=== PATIENT | female | born 1955 | race Caucasian/White ===

== ENCOUNTER → 2024-05-07 09:00 | Outpatient (REF) | payer OTHER, SELFPAY | LOC: RCS 09:00 | PROVIDERS: ATTENDING PHYSICIAN Internal Medicine; FAMILY PHYSICIAN Physician Assistant | DX: I48.21 Permanent atrial fibrillation (principal); I42.1 Obstructive hypertrophic cardiomyopathy; I34.0 Nonrheumatic mitral (valve) insufficiency; I21.4 Non-ST elevation (NSTEMI) myocardial infarction | CPT/HCPCS: 93306 ==

== ENCOUNTER 2024-09-04 14:09 | Inpatient (IN) | payer OTHER, SELFPAY ==
[2024-09-04] VITALS (10 sets, daily range): BP systolic 97–133; BP diastolic 46–77; BMI 22.0; BMI 21.4
--- NOTE | 2024-09-04 11:31 | ED.GENMED ---
History of Present Illness
General
Chief Complaint: Breathing Problem
Source: patient
Exam Limitations: none
Time Seen by Provider: 09/04/24 10:59
History of Present Illness
History of Present Illness:
Shortness of breath started 2 days ago. Progressive. History of CHF. No chest pain no fever cough congestion or hemoptysis. Symptoms are moderate in nature.
Past History
Past History
ED Past Medical History: Arrthythmia (Atrial flutter/fib, V. tach, V fib,), CAD, CHF, Hypercholesterolemia, [place], Psychiatric (major depression), Other (hiatal hernia), Other (pyelonephritis) and Other (Cardiomyopathy, heart heart valve problem,
Sudden cardiac )
ED Past Surgical History: Cardiac (Pacer/AICD), Cholecystectomy, Gynecological (tubal ligation), Orthopedic (R hip replacment) and Other (Cardiac ablation done in 2004 at 2005 at [facility], and a colonoscopy in 2006, abd hernia repair)
Social History
Tobacco: Smoker
Alcohol: None
Drug: None and Other
Personal: Partner
Living: alone
Employment: Not employed
Family History
Family History: Cancer (Mother ngozi duct, Brother colon)
Review of Systems
Review of Systems
All Other Systems: Not applicable
Constitutional: Denies fever or chills
Cardiac: Denies chest pain or syncope
Phy Exam
Physical Exam
Physical Exam:
GENERAL: Alert and oriented in no apparent distress
EYE: Orbits normal.
NECK: Supple, no significant adenopathy.
ENT: Pharynx without erythema
CARDIAC: Regular rate and rhythm without any obvious murmurs.
LUNGS: Mild tachypnea with expiratory wheezing in the bases
ABDOMEN: Soft, without focal tenderness or distention
NEUROLOGICAL: Alert and oriented , grossly non-focal
SKIN: Warm and dry, no rash or lesion, no discoloration, skin intact.
MUSCULOSKELETAL: No edema,no deformity.Good color
PSYCH: Normal and appropriate interaction.
Scores
Heart Failure Risk
Heart Failure Risk Score: Yes
History of Stroke or TIA: No
History of intubation for respiratory distress: No
Heart rate on ED arrival >/= 110: No
SaO2 <90% on arrival on room air: No
HR >/=110 during 3min walk test (or too ill to perform test): Yes
ECG has acute ischemic changes: No
Urea >/=12mmol/L (BUN 33.6mg/dL): No
Serum CO2>/=35mmol/L: No
Troponin I or T elevated to [place] Level (0.4mg/dL): No
NT-proBNP >/=5,000ng/L (5,000pg/ml): No
HF Risk Score: 2
Admission Status: MEDIUM RISK 9.2% Consider observation or discharge to home with homecare & f/u visit to PCP/[facility], or SNF for treatment
Course
Orders/Labs/Results
Orders:
Orders
09/04/24 10:53
Electrocardiogram (*1) Urgent
Reason for Study: Shortness of Breath
EKG- Treatment ONCE
09/04/24 11:05
IV Insert/Care/Rem.- Treatment PRN
CR Chest Portable - 1 View Urgent
Comment:
Reason For Exam: sob
Reason Study Needs to be Portable: Patient Unstable
09/04/24 11:20
Basic Metabolic Panel Urgent
COVID-19 Antigen Urgent
Source: Nasal Swab
Complete Blood Count/With Diff Urgent
Glycohemoglobin (HgbA1c) Urgent
NT-proBNP Urgent
Troponin I Urgent
Influenza A+B Rapid Molecular Urgent
[place] Source: Nasal Swab
Specimen Description:
09/04/24 13:06
Furosemide [Lasix] 80 mg IV NOW STA
Ipratropium/Albuterol Sulfate [Duoneb] 3 ml INH R NOW ONE
09/04/24 13:53
Admit/Transfer Patient As Directed
Co-Sign Provider:
Level of Care: Inpatient admission
Assign to:: Telemetry
Physician / Group: Marcel Marino
Diagnosis: Acute on Chronic HFpEF
Reason for Telemetry: Arrhythmia
Date to Stop Telemetry: 09/07/24
Time to Stop Telemetry: 11:00
Reason for Hospitalization: Acute on Chronic HFpEF
Expected length of stay greater than two midnights?: Yes
ELOS- Estimated Length of Stay in days: 3
I certify the patient meets the requirements for IP care: Yes
PRN Pain Medication Management As Directed
May give lesser potent ordered pain med per pt: Yes
preference::
Protocol:: Medication orders for pain may be administered in a
manner that supports deferring to patient preference
when the pt is:
- Requesting an ordered lesser potent pain medication.
Least to most potent pain medications are defined
as: acetaminophen < NSAID < tramadol < opioids
(morphine, oxycodone, hydromorphone).
- Requesting a lesser dose of the same medication IF
ORDERED.
- Requesting a less intrusive route of administration
if both routes are prescribed by the provider (PO <
IV).
09/04/24 13:54
Code Status As Directed
Resuscitation Status: Full Code
09/04/24 Dinner
Cholesterol Lowering
At Your Request: Full Participation
Cholesterol Lowering: Sodium, 2 Gram
09/04/24 18:44
Electrocardiogram (*1) Q6H
Reason for Study: Chest Pain
Comment: at admission and Q3H for total of 3, to be done with each troponin
Rosuvastatin Calcium [Crestor] 40 mg PO QPM
09/04/24 18:44
CARDIOLOGY CONSULT Routine
Consulting Provider: Ahsan Mcdermott)
Was physician already notified: Yes
Activity As Directed
Activity Level: Out of Bed-Early Mobility
Bladder Scan As Directed
Follow Bladder Retention/Intermittent Cath Algorithm?: Yes
PRN if no void in __ hours: 6
Frequency: Per Retention Algorithm
If Bladder Scan Result >: 400
then:: Straight cath
INT (Intravenous Needle Therapy) As Directed
Comment: maintain peripheral IV access
Intake/ Output As Directed
Frequency: Per unit guidelines
Straight Cath As Directed
Frequency: Per Retention Algorithm
Additional Instructions: straight cath as needed per acute urinary retention algorithm for 24 hrs
Additional Instructions: for bladder scan greater than 400 mL
Vital Signs As Directed
Frequency: q4h
Weight As Directed
Frequency: Daily
09/04/24 20:00
Metoprolol [Lopressor] 100 mg PO BID
09/04/24 21:07
PT/INR [Prothrombin Time] Routine
Troponin I Q6H
Comment: at admit & Q3H for 3 total including ED draws, obtain ECG with each level
09/04/24 22:00
Warfarin [Coumadin] 2 mg PO MOWETHFRSA
09/05/24 00:44
Electrocardiogram (*1) Q6H
Reason for Study: Chest Pain
Comment: at admission and Q3H for total of 3, to be done with each troponin
09/05/24 01:29
Troponin I Q6H
Comment: at admit & Q3H for 3 total including ED draws, obtain ECG with each level
09/05/24 06:00
Complete Blood Count/No Diff IN AM
Comprehensive Metabolic Panel IN AM
09/05/24 08:00
Citalopram [Celexa] 20 mg PO DAILY
Omeprazole Suspension [Prilosec Baby Oral Suspension] 20 mg PO DAILY
Ranolazine Extended Release [Ranexa Extended Release] 500 mg PO DAILY
Verapamil Extended Release [Calan Extended Release] 360 mg PO DAILY
09/06/24 06:00
Complete Blood Count/No Diff IN AM
Comprehensive Metabolic Panel IN AM
09/07/24 06:00
Complete Blood Count/No Diff IN AM
Comprehensive Metabolic Panel IN AM
09/07/24 11:00
DC Protocol for Telemetry ONCE
09/07/24 18:00
Warfarin [Coumadin] 4 mg PO SUTU
Abnormal Lab Results
09/04/24
11:20
RBC 4.02 L 10^6/uL
(4.20-5.40)
Hct 35.6 L %
(37.0-47.0)
Abs Immat Gran (auto) 0.1 H 10^3/uL
(0-0.05)
Absolute Neuts (auto) 7.3 H 10^3/uL
(1.4-6.5)
Absolute Monos (auto) 0.9 H 10^3/uL
(0.1-0.6)
Immature Gran % 0.6 H %
(0-0.5)
Neutrophils % 76.3 H %
(42.2-75.2)
Lymphocytes % 12.1 L %
(20.5-51.1)
BUN 23 H mg/dl
(7-17)
Glucose 173 H mg/dl
(70-99)
09/04/24 11:20
09/04/24 11:20
Vital Signs
Initial and Last Documented VS:
Initial Vital Signs
Temp Pulse Resp BP Pulse Ox
97.9 F 71 20 133/74 98
09/04/24 10:50 09/04/24 10:50 09/04/24 10:50 09/04/24 10:50 09/04/24 10:50
Last Documented Vital Signs
Temp Pulse Resp BP Pulse Ox
98.2 F 61 18 117/61 93
09/05/24 03:00 09/05/24 03:00 09/05/24 03:00 09/05/24 03:00 09/05/24 03:00
MDM/Problems Addressed
Differential Diagnosis Includes:
Progressive dyspnea. CHF versus COPD/respiratory versus both. Workup in progress
*Radiology
Radiology exam reviewed: preliminary read by ED provider (Mild CHF) and radiology read reviewed (Mild CHF)
*Pulse Oximetry
Patient hypoxic: no
*EKG
Interpreted by ED Provider?: Yes
Comparison EKG: changes noted
Heart Rate: 70
Rate: normal
Rhythm: sinus
Raymond: normal axis
Interval: first degree heart block
QRS Pattern: right bundle branch block (inc)
Ischemia: T-wave inversion
*Critical Care Note
Total Time (30-74mins, 75-104mins- exclusive of procedures): Not Applicable
Data Reviewed
Review of Other/Old Records Reveals: Labs, Records, Radiology Studies and Testing
Update Note
Update Note:
Patient with a component of CHF but also expect probably a component of COPD. Will admit. Mildly tachypneic at rest and describing significant tachypnea with exertion
ED Attending Note
-
Portions of this chart may have been created with voice recognition software.� Occasional wrong word or��sound alike� substitutions may have occurred due to the inherent limitations of voice recognition software.
Discharge Plan
Departure
Patient Disposition: Admit
Date of Disposition: 09/04/24
Time of Disposition: 13:08
Presentation/result/management discussed w/ accepting MD/DO: Hospitalist
Discharge Problem:
CHF/COPD
Interventions
Interventions:
*Risk Screen - Suicide Last Done: 09/04/24 10:51
*Neglect/Abuse Screening Last Done: 09/04/24 10:51
*ED COVID-19 Vaccine History Last Done: 09/04/24 18:17
*Nursing Disposition Last Done: 09/04/24 18:29
ED- Cardiac Assessment Last Done: 09/04/24 11:29
ED- Pulmonary Assessment Last Done: 09/04/24 11:29
Discharge Date and Time
Discharge Date/Time: 09/04/24 18:29
[2024-09-04 11:36] LABS: % Basophils 0.6 % (0-2); % Eosinophils 1.1 % (0-6); % Immature Granulocytes 0.6 % (0-0.5); % Lymphocytes 12.1 % (20.5-51.1); % Monocytes 9.3 % (1.7-9.3); % Neutrophils 76.3 % (42.2-75.2); Absolute Basophils 0.1 10^3/uL (0-0.2); Absolute Eosinophils 0.1 10^3/uL (0-0.7); Absolute Immature Granulocytes 0.1 10^3/uL (0-0.05); Absolute Lymphocytes 1.2 10^3/uL (1.2-3.4); Absolute Monocytes 0.9 10^3/uL (0.1-0.6); Absolute Neutrophils 7.3 10^3/uL (1.4-6.5); Hematocrit 35.6 % (37.0-47.0); Hemoglobin 12.2 g/dL (12.0-16.0); Mean Corp Hgb Conc. 34.3 g/dL (33.0-37.0); Mean Corpuscular Hgb 30.3 pg (27.0-31.0); Mean Corpuscular Volume 88.6 fL (81.0-99.0); Nucleated Red Blood Cells % 0 %; Platelet Count 255 10^3/uL (130-400); Red Blood Cell Count 4.02 10^6/uL (4.20-5.40); Red Cell Dist. Width 13.2 % (11.5-14.5); White Blood Cell Count 9.6 10^3/uL (4.8-10.8)
[2024-09-04 11:53] LABS: COVID-19 Antigen Negative (Negative)
[2024-09-04 11:57] LABS: Blood Urea Nitrogen 23 mg/dl (7-17); Calcium 9.5 mg/dl (8.4-10.2); Carbon Dioxide 26 mmol/L (22-30); Estimated Creatinine Clearance 52 ml/min; Glucose 173 mg/dl (70-99); eGFR > 60.00
[2024-09-04 12:14] LABS: NT-proBNP 3570 pg/ml; Troponin I 0.014 ng/ml
[2024-09-04 12:23] LABS: Chloride 103 mmol/L (98-107); Potassium 4.1 mmol/L (3.5-5.1); Sodium 140 mmol/L (135-145)
[2024-09-04] MEDS: LASIX 80 MG IV (13:08)
[2024-09-04] MEDS: DUONEB 3 ML INH (13:08)
--- NOTE | 2024-09-04 13:12 | HPS.HSE ---
Family Physician
-
Family Physician: Josep Storey
Chief Complaint
-
Breathing problem
History of Present Illness
Patient is a 69-year-old female with past medical history significant for HFpEF, ventricular tachycardia, atrial fibrillation, hypertrophic obstructive cardiomyopathy, and depression presented to [facility] ED for evaluation of HEATH and increased
dyspnea at rest. Patient stated that she has noticed being more short of breath with exertion over the past several days and than last night she noticed increased dyspnea when lying in bed that was associated with chest pain (describes as pressure
in the shoulder area) when it did not resolve or improve overnight she came in for evaluation. Patient denies fever, chills, cough, nausea, vomiting, constipation, or diarrhea.
Medical History
Past Medical History
Past Medical History: Reports Other
Additional Past Medical History:
HFpEF
Ventricular Tachycardia
Atrial Fibrillation
Hypertrophic obstructive cardiomyopathy
Depression
Past Surgical History: Reports Other
Additional Past Surgical History:
Cholecystectomy
Hernia repair
Defibrillator
Social History
Tobacco: Smoker (20 pack year history, currently smokes approximately 5 cigarettes a day)
Alcohol: None
Drug: Marijuana (smokes a few times a week)
Personal: Single
Living: With Family
Employment: Disabled
Family History
Family History: Other (Mother: Bile duct ca, A-fib; Father: Blood ca; Brother: Rectal ca; Daughter: rectal ca)
Allergies / Home Medications
Allergies reflects when Allergies were last updated in [facility].
Home Medications with original date entered in [facility]
Allergy/Medication List:
Allergies
Allergy/AdvReac Type Severity Reaction Status Date / Time
amiodarone Allergy Shortness Verified 09/04/24 10:52
of Breath
morphine Allergy Vomiting Verified 09/04/24 10:52
Home Medications
warfarin 4 mg tablet (Jantoven) 4 mg PO MOWETHFRSA Blood clot prevention/tx 05/06/11
citalopram 20 mg tablet 20 mg PO DAILY Mental health 07/13/15
metoprolol tartrate 100 mg tablet 100 mg PO BID Blood pressure 11/25/19
omeprazole 20 mg capsule,delayed release 20 mg PO DAILY Gastrointestinal issue 11/25/19
furosemide 40 mg tablet 80 mg PO DAILY Fluid retention/Swelling 09/06/20
verapamil 180 mg tablet,extended release 360 mg PO DAILY Blood pressure 09/06/20
rosuvastatin 40 mg tablet 40 mg PO QPM High Cholesterol 09/08/23
warfarin 4 mg tablet 4 mg PO SUTU Blood Clot Prevention/Tx 09/08/23
ranolazine 500 mg tablet,extended release,12 hr 500 mg PO DAILY 09/04/24
Review of Systems
-
History Source: Patient
Constitutional: Reports No Symptoms
EENT: Reports No Symptoms
Respiratory: Reports Trouble Breathing (dyspnea with exertion and at rest)
Cardiac: Reports Chest Pain (mild chest pain upper right (shoulder area) last night with dyspnea)
Abdomen/GI: Reports No Symptoms
: Reports No Symptoms
Musculoskeletal: Reports No Symptoms
Skin: Reports No Symptoms
Neurological: Reports No Symptoms
Endocrine: Reports No Symptoms
Hematologic/Lymphatic: Reports No Symptoms
Psych: Reports No Symptoms
Physical Exam
Vital Signs
Vital Signs
Temp Pulse Resp BP Pulse Ox
97.9 F 60 20 124/70 97
09/04/24 10:50 09/04/24 12:00 09/04/24 12:00 09/04/24 11:09 09/04/24 11:45
Physical Exam
General: Well Developed, Well Nourished, No Apparent Distress, Comfortable and Conversant
HEENT: NormoCephalic, Moist mucous membranes and Atraumatic
Respiratory: Clear and Decreased Breath Sounds
Cardiac: S1/S2 and Regular Rhythm; No Murmur, Rub or Gallop
Breast: Deferred by me
GI: Soft, Non Tender, Non Distended and Normal Bowel Sounds; No Organomegaly
Rectal: Deferred by Provider
Genito-urinary: Deferred by me
Musculoskeletal: No Clubbing, No Cyanosis and No Edema
Skin: Warm, Dry and IV/Catheter Site; No Rash
Neuro: Awake, Alert, AO x 3, Nonfocal/grossly intact and Cranial Nerves Intact
Hematologic/Lymphatic: No Lymphadenopathy
Psych: Calm and Intact Judgment/Insight
Laboratory Results
-
09/04/24 11:20
09/04/24 11:20
Laboratory Results
Troponin I 0.014 ng/ml 09/04/24 11:20
Data Reviewed
-
Diagnostic Radiology: Report Reviewed by me (CXR: Suspect mild congestive heart failure. No radiographically demonstrable pneumonia.)
Medical Tests (Nuc Med, Echo, EKG etc): Report Reviewed by me (EKG: SINUS RHYTHM WITH 1ST DEGREE A-V BLOCK WITH PREMATURE ATRIAL COMPLEXES POSSIBLE LEFT ATRIAL ENLARGEMENT INCOMPLETE RIGHT BUNDLE BRANCH BLOCK ST and MARKED T WAVE ABNORMALITY
CONSIDER ANTEROLATERAL ISCHEMIA)
Lab Data: Labs Reviewed by me
Impression/Plan
-
IMPRESSION/PLAN:
#Acute on Chronic HFpEF
- CXR: Suspect mild congestive heart failure. No radiographically demonstrable pneumonia.
- Increased dyspnea with exertion and at rest
- BNP 3570
- Admit to Telemetry
- Consult cardiology
- Trend troponin
- IV Lasix 40mg BID
- Bladder scan/straight cath
#COPD??
- CXR: Suspect mild congestive heart failure. No radiographically demonstrable pneumonia.
- current everyday smoker of 5 cigarettes per day
- 20 pack year history
- DuoNeb PRN
#Ventricular Tachycardia
#Atrial Fibrillation
- continue metoprolol, warfarin
- PT/INR
#Hypertrophic obstructive cardiomyopathy
- continue ranolazine, rosuvastatin
#Depression
- continue citalopram
#Nicotine dependence
- encourage cessation
- nicotine replacement declined ny patient
Full Code
DVT Px: Coumadin
--- NOTE | 2024-09-04 14:04 | W.PN.UPDATE ---
Update Note
Progress Note Update
This is an addendum to the H&P written by Carin Mccormack on 09/04/2024.� Patient seen and examined independently with [employer].
69-year-old female past medical history of permanent atrial fibrillation/flutter, ventricular tachycardia, ventricular fibrillation status post ICD, CAD, HFpEF, polysubstance abuse, CVA, GERD, depression, presenting for shortness of breath and chest
pressure since yesterday.� Also complains of shoulder achiness bilaterally.� No cough.
Cardiac BNP 3500.� Chest x-ray shows mild congestive heart failure.� Lungs sound clear.
Presentation consistent with acute on chronic HFpEF exacerbation.� Lasix 40 twice daily.� Cardiology consulted.� Continue nebulizers although presentation not consistent with COPD flare.� No documented history of COPD although she smokes 5
cigarettes daily.� Continue DuoNebs as needed.
--- NOTE | 2024-09-04 14:46 | CON.CAR ---
Addendum entered and electronically signed by Ahsan Mcdermott MD (Ellie) 09/04/24 16:42:
I saw and examined the patient.
The UTILITY APPRAISER's note was reviewed and I agree with the note.
Comment:
69-year-old female with history of permanent atrial fibrillation (on warfarin), hypertrophic cardiomyopathy, VT with ICD, moderate to severe MR, NSTEMI with normal coronary arteries 1 year ago, and active tobacco use who presents with shortness of
breath and orthopnea. She started feeling short of breath a few days ago. No recent change in her diuretic use or diet. Has been consistently taking Lasix 80 mg daily. She denies chest pain, palpitations, syncope, or presyncope. On exam she has
a regular rate and rhythm with a systolic murmur, no lower extremity edema, normal JVP, and mild crackles at the bilateral bases. Labs are notable for BNP in the 3000's and creatinine 1.0 which is at her baseline. Opponent negative. ECG shows
sinus rhythm with first-degree AV block, and anterolateral ST depressions and T wave inversions. It is overall unchanged from prior in 2021. Last echocardiogram in May of this year showed normal LVEF, stage III diastolic dysfunction, and moderate
to severe MR.
In summary, this is a 69-year-old female who is presenting with mild heart failure exacerbation. She has received 80 IV Lasix thus far and already feels that her breathing has improved. We will continue gentle diuresis with 80 IV Lasix daily. We
need to be judicious given her history of hypertrophic obstructive cardiomyopathy. In terms of her permanent A-fib, she is actually in sinus rhythm today. We will continue Coumadin for anticoagulation. For her history of VT, we will continue
ranolazine, metoprolol, and verapamil.
Original Note:
Consultation
Consultation Request
Date/Time Consultation Requested: 09/04/24 1354
Date/Time Consultation Performed: 09/04/24 1430
Requesting Provider: Francine Mistry
Performing Provider: Kimberly RIOS for Dr. Mcdermott
Reason for Consultation: CHF
Medical History
-
Chief Complaint: SOB
History of Present Illness:
69 y/o female with AFIB on warfarin (hx remote ablations, CV), previously considered permanent, HOCM with VT and ICD in place, HFpEF, moderate to severe MR, hypertension, intramyocardial bridge, polysubstance abuse (meth-occasional, marijuana 3
times per week, cigarettes 5 cigarettes per day), and GERD who is here for evaluation of SOB x 3 days. She has orthopnea and PND, as well as mild abdominal bloating and LE edema. Has been urinating less over the past month, despite taking meds. She
also has had neck and back pain, but has been doing a lot of lifting due to a stressful housing situation. She is in no distress at the time of my assessment. Lungs diminished to b/l bases.
Past Medical History
Past Medical History: Other (VT s/p [employer] dual-chamber ICD implant, HOCM, permanent AF on warfarin, LAD myocardial bridge, HFpEF, severe MR, HLD, cigarette/marijuana/crystal meth use)
Past Surgical History: Cardiac (ICD implant and cath )
Social History
Tobacco: Smoker (~ 5 cigs a day)
Drug: Marijuana and Other (crystal meth intranasal ingestion )
Family History
Family History: Reviewed & Not Pertinent
Allergies / Home Medications
Allergy/AdvReac Type Severity Reaction Status Date / Time
amiodarone Allergy Shortness Verified 09/04/24 10:52
of Breath
morphine Allergy Vomiting Verified 09/04/24 10:52
�Medication �Instructions �Recorded �Confirmed �Type
warfarin 4 mg tablet (Jantoven) 4 mg PO MOWETHFRSA Blood clot 05/06/11 09/04/24 History
prevention/tx
citalopram 20 mg tablet 20 mg PO DAILY Mental health 07/13/15 09/04/24 History
metoprolol tartrate 100 mg tablet 100 mg PO BID Blood pressure 11/25/19 09/04/24 History
omeprazole 20 mg capsule,delayed 20 mg PO DAILY Gastrointestinal 11/25/19 09/04/24 History
release issue
furosemide 40 mg tablet 80 mg PO DAILY Fluid 09/06/20 09/04/24 History
retention/Swelling
verapamil 180 mg tablet,extended 360 mg PO DAILY Blood pressure 09/06/20 09/04/24 History
release
rosuvastatin 40 mg tablet 40 mg PO QPM High Cholesterol 09/08/23 09/04/24 History
warfarin 4 mg tablet 4 mg PO SUTU Blood Clot 09/08/23 09/04/24 History
Prevention/Tx
ranolazine 500 mg tablet,extended 500 mg PO DAILY 09/04/24 09/04/24 History
release,12 hr
Review of Systems
-
History Source: Patient
All other systems: Negative unless noted
Respiratory: Trouble Breathing
Musculoskeletal: Other (neck and back pain)
Physical Exam
Vital Signs
Temp Pulse Resp BP Pulse Ox
97.9 F 61 19 110/66 95
09/04/24 10:50 09/04/24 14:30 09/04/24 14:30 09/04/24 14:00 09/04/24 14:30
Lab Results
09/04/24 11:20
09/04/24 11:20
Troponin I 0.014 ng/ml 09/04/24 11:20
Fen-B-Ohsqqqewhxm Pept 3570 pg/ml 09/04/24 11:20
Physical Exam
General: Well Developed, Well Nourished and No Apparent Distress
HEENT: Normocephalic and Anicteric
Respiratory: Other (diminished to b/l bases)
Cardiac: Regular Rhythm
Musculoskeletal: Edema (mild BLE edema)
Skin: Warm and Dry
Neuro: AO x 3
Psych: Calm
Impression / Plan
-
SOB:
-there does seem to be a component of mild CHF (zvjkn-of-ssutpef HFpEF)- cautious IV diuresis in this patient with hx HOCM. Requires intensive monitoring.
-abnormal EKG is noted, but T waves similar to previous. Trop normal. Cath less than a year ago without CAD.
-most recent echo as below
-also current smoker, likely underlying lung disease
Moderate to severe MR:
-volume plan as above
AFIB, previously considered permanent, but surprisingly in SR in ER:
-continue metoprolol, verapamil
-on warfarin for OAC- continue and follow INR's (order in)
HOCM, with VT:
-ICD in place
-continue metoprolol, verapamil, and Ranexa (amiodarone allergy)
Intramyocardial bridge:
-avoiding nitrates
Smoker:
-encouraged cessation
-also recommended no meth use
Data Reviewed
-
EKG: Tracing Personally Visualized and interpreted (SR with 1st degree AVB with PAC's, IC RBBB, ST and marked T wave abnormality (stable) )
Radiology: Report Reviewed by me (CXR: No acute cardiopulmonary process.)
Medical Tests (Nuc Med, Echo etc): Report Reviewed by me (Echo 05/07/24: LVEF is 60 to 65%. Mild concentric LVH. Stage III diastolic dysfunction. Severe LA dilation. Moderate to severe eccentric mitral regurgitation. Estimated pulmonary artery
pressure of 36 mmHg)
Labs: Labs Reviewed by me
[2024-09-04] MEDS: CRESTOR 40 MG PO (20:39)
[2024-09-04] MEDS: LOPRESSOR PO (20:40)
[2024-09-04 21:25] LABS: INR 2.48; PT 27.2 Sec (11.4-14.6)
[2024-09-04 21:38] LABS: Troponin I < 0.012 ng/ml
[2024-09-05 02:08] LABS: Troponin I < 0.012 ng/ml
[2024-09-05 03:00] VITALS: BP 117/61
[2024-09-05 06:00] VITALS: BMI 21.2; BMI 21.4
[2024-09-05 07:47] LABS: Hematocrit 36.7 % (37.0-47.0); Hemoglobin 12.6 g/dL (12.0-16.0); Mean Corp Hgb Conc. 34.3 g/dL (33.0-37.0); Mean Corpuscular Hgb 29.8 pg (27.0-31.0); Mean Corpuscular Volume 86.8 fL (81.0-99.0); Mean Platelet Volume 9.7 fL (7.4-10.4); Platelet Count 259 10^3/uL (130-400); Red Blood Cell Count 4.23 10^6/uL (4.20-5.40); Red Cell Dist. Width 13.3 % (11.5-14.5); White Blood Cell Count 8.3 10^3/uL (4.8-10.8)
[2024-09-05 08:09] VITALS: BP 95/69
[2024-09-05 08:16] LABS: ALT (SGPT) 20 U/L (0-35); AST (SGOT) 21 U/L (14-36); Albumin 3.6 g/dl (3.5-5.0); Alkaline Phosphatase 102 U/L (38-126); Blood Urea Nitrogen 21 mg/dl (7-17); Calcium 9.4 mg/dl (8.4-10.2); Carbon Dioxide 29 mmol/L (22-30); Chloride 100 mmol/L (98-107); Estimated Creatinine Clearance 47 ml/min; Glucose 136 mg/dl (70-99); Potassium 3.8 mmol/L (3.5-5.1); Sodium 138 mmol/L (135-145); Total Bilirubin 1.3 mg/dl (0.2-1.3); Total Protein 5.8 g/dl (6.3-8.2); eGFR 54.73
[2024-09-05] MEDS: PROTONIX 40 MG PO (08:30)
[2024-09-05] MEDS: LOPRESSOR PO (08:33)
[2024-09-05] MEDS: RANEXA EXTENDED RELEASE 500 MG PO (08:33)
[2024-09-05] MEDS: CELEXA 20 MG PO (08:34)
[2024-09-05] MEDS: CALAN EXTENDED RELEASE PO (08:34)
--- NOTE | 2024-09-05 09:38 | W.PN.CD ---
Today's Communication / Plan
-
-Dyspnea is most likely secondary to COPD exacerbation as the patient has active wheezing; she continues to smoke cigarettes daily.
-Counseled repeatedly on the importance of smoking cessation.
-Patient can resume home dose of Lasix 80 mg PO daily.
-On warfarin for OAC; INR therapeutic at 2.48.
Impression / Plan
-
SOB:
-Dyspnea is most likely secondary to COPD exacerbation as the patient has active wheezing; she continues to smoke cigarettes daily.
-Counseled repeatedly on the importance of smoking cessation.
Chronic HFpEF/moderate to severe MR:
-Compensated on examination.
-Patient can resume home dose of Lasix 80 mg PO daily.
PAF, previously considered permanent, but surprisingly in SR in ER:
-Continue current doses of metoprolol, verapamil.
-On warfarin for OAC; INR therapeutic at 2.48.
HOCM, with VT:
-ICD in place; stable.
-continue metoprolol, verapamil, and Ranexa (amiodarone allergy)
Intramyocardial bridge:
-avoiding nitrates
Smoker:
-encouraged cessation
Methamphetamine use:
-Avoidance recommended.
Physical Exam
Vital Signs/Labs
Vital Signs
Temp Pulse Resp BP Pulse Ox
97.8 F 62 18 95/69 95
09/05/24 08:09 09/05/24 08:34 09/05/24 08:09 09/05/24 08:34 09/05/24 08:25
09/04/24 09/05/24 09/06/24
06:59 06:59 06:59
Actual Weight 61.377 kg
09/05/24 07:27
09/05/24 07:27
PT 27.2 Sec (11.4-14.6) H 09/04/24 21:07
INR 2.48 09/04/24 21:07
09/04/24
11:20
Clw-M-Cazcdcajsvi Pept 3570
LAB Results
09/04/24 09/04/24 09/05/24
11:20 21:07 01:29
Troponin I 0.014 < 0.012 < 0.012
Physical Exam
Constitutional: No acute distress and Comfortable
EENT: Anicteric
Cardiovascular: Rhythm & rate is regular, Pedal edema is absent, Systolic murmur present (01/08) and S1S2 is normal
Respiratory: Respiratory effort normal, Crackles Absent and Wheeze Present (Expiratory)
GI: Soft
Neuro/Psych: AO x 3
Other: Skin (Warm, dry, intact)
Data Reviewed
-
Date of Service: September 05, 2024
EKG: Tracing Personally Visualized and interpreted (Telemetry: V-paced)
Labs: Labs Reviewed by me
[2024-09-05 10:41] LABS: Glycohemoglobin (HgbA1c) 6.9 % (4.0-5.6)
--- NOTE | 2024-09-05 10:58 | W.PN.HOSP.TC ---
Addendum entered and electronically signed by Martha Tinoco MD 09/05/24 16:14:
I saw and evaluated the patient independently. I reviewed the resident�s note and agree with findings and plan as documented by Dr. Mckinley.
GENERAL: well developed, well nourished, female in no apparent distress--smells of cigarettes
HEENT: NC/AT raspy voice
HEART: regular rate and rhythm, +S1, +S2
LUNGS : wheezes with forced expiration
ABDOM: soft, nontender, nondistended, + bowel sounds
EXT: no cyanosis, clubbing, or edema
NEUROLOGIC: grossly intact
Dyspnea secondary to acute on chronic HFpEF vs COPD exacerbation (more likely) exacerbated by smoking-- BNP 3570, troponin 0.14 --> neg x2-- S/p IV lasix, duoneb with improvement in symptoms (pt states duonebs helped more)--apprec cards--cont home
lasix dose--start generic symbicort and oral prednisone
Active tobacco use/Nicotine dependence--needs to quit but not ready
Permanent afib on warfarin/HOCM/H/o vtach with ICD- Continue home metoprolol, verapamil, ranexa- INR therapeutic, continue home warfarin--apprec cards
H/o methamphetamine use- Recommend abstinence
Code status-- full code
DVT proph-- warfarin
Original Note:
Today's Communication/Plan
-
prednisone 40mg daily, will start inhaler pending CM pricing
Assessment / Plan
Assessment / Plan
69yo F with PMH HFpEF, COPD, active tobacco use, Vtach with ICD, permanent afib on warfarin, HOCM, h/o NSTEMI who presented to ED 09/04 for worsening dyspnea on exertion and at rest.
Dyspnea secondary to acute on chronic HFpEF vs COPD exacerbation
- Chest xray with signs of mild congestive heart failure
- BNP 3570, troponin 0.14 --> neg x2
- S/p IV lasix, duoneb with improvement in symptoms
- Cardiology consulted, appreciate recs. Resume home lasix 80mg PO qd.
- CM consult to [place] options of symbicort vs adivar. Will start inhaler inpatient that can be continued affordably at hospital discharge.
- Start 40mg prednisone qd. Reassess for steroid taper when appropriate.
Active tobacco use
Nicotine dependence
- Smokes 5 cig/day, denies cravings, declines nicotine patch
- Not ready to quit smoking in next week due to stress. Patient aware of importance of quitting for her health.
- Recommend following up with PCP for help to quit smoking.
Permanent afib on warfarin
HOCM
H/o vtach with ICD
- Continue home metoprolol, verapamil, ranexa
- INR therapeutic, continue home warfarin
- Regular rate, paced
- Cardiology following, appreciate recs.
H/o methamphetamine use
- Recommend abstinence
Code status: full
VTE ppx: warfarin
Diet: cholesterol lowering, 2g Na
Dispo planning: anticipate dc home when appropriate
Anticipated Discharge: 24 - 48 hours
Subjective/Interval History
-
Date of Service: September 05, 2024
No acute events overnight. Says her breathing feels better. She reports some chronic indigestion due to hiatal hernia. Occasionally feels off balance walking but has no falls. Denies dizziness, chest pain, shortness of breath, nausea, diarrhea,
constipation. Last BM was yesterday, no black or bloody stools. Tolerating PO diet. OOB to bathroom without assistance. Denies cigarette cravings- smokes 5 cig/day.
Objective Data
-
Labs:
Laboratory Results
09/05/24
07:27
WBC 8.3
Hgb 12.6
Hct 36.7 L
Plt Count 259
Sodium 138
Potassium 3.8
Chloride 100
Carbon Dioxide 29
BUN 21 H
Creatinine 1.1 H
Glucose 136 H
Calcium 9.4
Total Bilirubin 1.3
AST 21
ALT 20
Alkaline Phosphatase 102
Vital Signs:
Vital Signs
Temp Pulse Resp BP Pulse Ox
97.8 F 62 18 95/69 95
09/05/24 08:09 09/05/24 08:34 09/05/24 08:09 09/05/24 08:34 09/05/24 08:25
I&O
09/04/24 09/05/24 09/06/24
06:59 06:59 06:59
Intake Total 480 / 480
Balance 480 / 480
Review of Systems
-
History Source: Patient
All other systems: Reviewed and negative
Physical Exam
-
General: Well Developed, Well Nourished, No Apparent Distress, Comfortable and Conversant
HEENT: Normocephalic and Atraumatic; Negative Oxygen
Respiratory: Clear to Auscultation, Wheezes (forced expiratory wheeze), Non Labored Respirations and Decreased Breath Sounds (decreased breath sounds right lower lung)
Cardiac: Regular Rhythm and S1/S2
GI: Soft, Nontender, Nondistended and Normal Bowel Sounds
Musculoskeletal: No Edema
Skin: Warm and Dry
Neuro: Awake, Alert, Oriented, AO x 3 and Nonfocal/Grossly Intact
Psych: Calm and Intact Judgement/Insight
Data Reviewed
-
Diagnostic Radiology: Image personally visualized and interpreted and Report Reviewed by me
Labs: Labs Reviewed by me
[2024-09-05 11:21] VITALS: BP 107/67
[2024-09-05] MEDS: DELTASONE 40 MG PO (11:45)
[2024-09-05 15:34] VITALS: BP 119/69
[2024-09-05] MEDS: CRESTOR 40 MG PO (17:42)
[2024-09-05] MEDS: COUMADIN 2 MG PO (17:42)
--- NOTE | 2024-09-05 17:53 | CM ---
REMA met with Dominga at bedside to complete IA. She is (I) amb and adls, lives with her daughter and friend in a 3 story home with 5 entry steps.
REMA provided Advance Directive Advance Directive to patient. Reviewed the intent of the forms; to provide information to family/decision makers of what an acceptable quality of life would be if you cannot communicate your wishes due medical/physical
limitations; to have a record of what medical decisions would be acceptable to you as end of life nears, as well as providing and importance of sharing the completed AD with family so they can ask clarifying questions for full understanding of the
document and intention.
REMA returned later in the day to see if Dominga had any questions. We discussed who she would share the document with, and she had a good understanding of the AD. She reported that she had previously been in a coma, and wished she had done the AD
long ago.
Plan: Discharge to home with no need. Dominga will share her AD with her daughters.
[2024-09-05 19:50] VITALS: BP 122/66
[2024-09-05] MEDS: SYMBICORT 80/4.5 MCG INHALER 2 PUFF INH (20:06)
[2024-09-05] MEDS: LOPRESSOR 100 MG PO (20:26)
[2024-09-05 23:33] VITALS: BP 126/64
[2024-09-06 03:39] VITALS: BP 99/55
[2024-09-06 06:00] VITALS: BMI 21.7
[2024-09-06 06:31] LABS: Hematocrit 37.6 % (37.0-47.0); Hemoglobin 13.1 g/dL (12.0-16.0); Mean Corp Hgb Conc. 34.8 g/dL (33.0-37.0); Mean Corpuscular Hgb 30.7 pg (27.0-31.0); Mean Corpuscular Volume 88.1 fL (81.0-99.0); Mean Platelet Volume 9.5 fL (7.4-10.4); Platelet Count 289 10^3/uL (130-400); Red Blood Cell Count 4.27 10^6/uL (4.20-5.40); Red Cell Dist. Width 12.8 % (11.5-14.5); White Blood Cell Count 13.7 10^3/uL (4.8-10.8)
[2024-09-06 06:52] LABS: ALT (SGPT) 20 U/L (0-35); AST (SGOT) 21 U/L (14-36); Albumin 3.5 g/dl (3.5-5.0); Alkaline Phosphatase 104 U/L (38-126); Blood Urea Nitrogen 26 mg/dl (7-17); Calcium 9.9 mg/dl (8.4-10.2); Carbon Dioxide 24 mmol/L (22-30); Chloride 103 mmol/L (98-107); Estimated Creatinine Clearance 58 ml/min; Glucose 165 mg/dl (70-99); Magnesium 1.8 mg/dl (1.6-2.3); Potassium 4.2 mmol/L (3.5-5.1); Sodium 137 mmol/L (135-145); Total Bilirubin 0.7 mg/dl (0.2-1.3); eGFR > 60.00
[2024-09-06 07:55] VITALS: BP 111/73
[2024-09-06] MEDS: SYMBICORT 80/4.5 MCG INHALER 2 PUFF INH (08:03)
[2024-09-06] MEDS: PROTONIX 40 MG PO (08:18)
[2024-09-06] MEDS: CALAN EXTENDED RELEASE 360 MG PO (08:18)
[2024-09-06] MEDS: LOPRESSOR 100 MG PO (08:19)
[2024-09-06] MEDS: LASIX 80 MG PO (08:19)
[2024-09-06] MEDS: DELTASONE 40 MG PO (08:19)
[2024-09-06] MEDS: CELEXA 20 MG PO (08:19)
[2024-09-06] MEDS: RANEXA EXTENDED RELEASE 500 MG PO (08:20)
[2024-09-06 11:49] VITALS: BP 95/69
--- NOTE | 2024-09-06 13:30 | W.PN.HOSP.TC ---
Today's Communication/Plan
-
d/c
Assessment / Plan
Assessment / Plan
pt is a 69 year old female
Dyspnea secondary to acute on chronic HFpEF vs COPD exacerbation (more likely) exacerbated by smoking-- BNP 3570, troponin 0.14 --> neg x2-- S/p IV lasix, duoneb with improvement in symptoms (pt states duonebs helped more)--apprec cards--cont home
lasix dose--start generic symbicort and oral prednisone taper for d/c
Active tobacco use/Nicotine dependence--needs to quit but not ready
Permanent afib on warfarin/HOCM/H/o vtach with ICD- Continue home metoprolol, verapamil, ranexa- INR therapeutic, continue home warfarin--apprec cards
H/o methamphetamine use- Recommend abstinence
Code status-- full code
DVT proph-- warfarin
Anticipated Discharge: Today
Subjective/Interval History
-
Date of Service: September 06, 2024
pt ready to go home
Objective Data
-
Labs:
Laboratory Results
09/06/24
06:21
WBC 13.7 H
Hgb 13.1
Hct 37.6
Plt Count 289
Sodium 137
Potassium 4.2
Chloride 103
Carbon Dioxide 24
BUN 26 H
Creatinine 0.9
Glucose 165 H
Calcium 9.9
Total Bilirubin 0.7
AST 21
ALT 20
Alkaline Phosphatase 104
Vital Signs:
max temp for 24 hours
09/05/24
23:33
Temp 98.1 F
Vital Signs
Temp Pulse Resp BP Pulse Ox
98.0 F 62 16 95/69 98
09/06/24 11:49 09/06/24 11:49 09/06/24 11:49 09/06/24 11:49 09/06/24 11:49
I&O
09/05/24 09/06/24 09/07/24
06:59 06:59 05:59
Intake Total 480 / 480 780 / 780
Balance 480 / 480 780 / 780
Review of Systems
-
All other systems: Reviewed and negative
Physical Exam
-
General: Well Developed, Well Nourished and No Apparent Distress
HEENT: Normocephalic and Atraumatic
Respiratory: Clear to Auscultation; Negative Wheezes or Rhonchi
Cardiac: Regular Rhythm and S1/S2; Negative Murmur
GI: Soft, Nontender, Nondistended and Normal Bowel Sounds
Musculoskeletal: No Clubbing, No Cyanosis and No Edema
Neuro: Awake
--- NOTE | 2024-09-06 14:02 | CM ---
CM following rte: discharge planning.
Reviewed pt's chart, met with pt.
Discharge order noted. Pt is are, expressed her agreement with discharge. IMM reviewed, placed on chart, pt has a copy.
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 pt stated her daughter is coming to transport her home.
D/C plan: home no needs. Daughter to transport.
--- NOTE | 2024-09-08 18:46 | W.DCSUMMARY ---
Addendum entered and electronically signed by Martha Tinoco MD 09/08/24 19:33:
Read, reviewed, and agree. See same day progress note for additional details. Time spent coordinating care, DC planning, review of DC plan of care with resident, transition of care, review of records in EMR, med rec, consults, notes, d/w
consultants, nursing, family, and CM < 30 minutes.
Original Note:
Discharge Summary
Discharge Data
Date of Admission: 09/04/24
Date of Discharge: 09/06/24
-
Pending Results: No
Hospital Course
Discharging Physician : Dr. Tinoco
Disposition : Home
Primary care physician : Dixie Storey
Principal Discharge diagnosis : Dyspnea secondary to chronic obstructive pulmonary disease exacerbation exacerbated by smoking and less likely chronic heart failure with preserved ejection fraction exacerbation, active tobacco use with nicotine
dependence
Chronic Discharge diagnosis : permanent atrial fibrillation on warfarin, hypertrophic cardiomyopathy, history of V. tach with ICD placement, history of methamphetamine use
Hospital Course : Presented to ED 09/04/24 for worsening dyspnea on exertion and at rest. Symptoms were thought to be due to COPD exacerbation and she was treated with PO prednisone, and generic symbicort. For chronic HFpEF, she was continued on
home dose of lasix. She was counseled on smoking cessation and offered nicotine patch, which she declined. Her other cardiac conditions were stable and home medications were continued. On day of discharge she was stable.
Important imaging findings :
Chest xray 09/04/24
FINDINGS:
Mild cardiomegaly. Suggestion of mild vascular congestion and interstitial prominence raising the possibility of mild congestive heart failure. No focal interstitial or airspace opacity to indicate pneumonia. No pneumothorax. No radiographically
demonstrable pleural effusion. Left-sided dual-lead ICD is in place.
IMPRESSION:
Suspect mild congestive heart failure. No radiographically demonstrable pneumonia.
Procedure findings : N/A
Discharge Plan
-
Patient Disposition: Home (Routine Discharge)
Discharge Diagnosis/Procedures: Dyspnea secondary to chronic obstructive pulmonary disease exacerbation exacerbated by smoking and less likely chronic heart failure with preserved ejection fraction exacerbation, active tobacco use with nicotine
dependence, permanent atrial fibrillation on warfarin, hypertrophic cardiomyopathy, history of V. tach with ICD placement, history of methamphetamine use
Condition: Good
Diet: As tolerated
Activity: As tolerated
Driving Restrictions: As prior to admission
Bathing Restrictions: None
Activity Restrictions/Additional Instructions:
must quit smoking and amphetamines
Referrals:
Anna Stacy NP [Specified Professional Personl] - 09/26/24 9:40 am
Josep Storey MD [Family Provider] - in less than 1 week
Prescriptions:
New
budesonide-formoterol [Symbicort] 80-4.5 mcg/actuation Hfa Aerosol Inhaler
2 puff inhalation R BID Qty: 10.2 0RF
warfarin [Jantoven] 4 mg Tablet
4 mg PO TU Qty: 1 0RF
warfarin [Jantoven] 2 mg Tablet
See Rx Instructions .ROUTE .COMPLEX Qty: 1 0RF
Rx Instructions:
2 mg orally daily every day except Sunday
prednisone 10 mg Tablet
See Rx Instructions .ROUTE .COMPLEX Qty: 30 0RF
Rx Instructions:
Take By Mouth:
40 mg daily x3 days, 30 mg daily x3 days,
20 mg daily x3 days, 10 mg daily x3 days.
Continued
citalopram 20 MG tablet
20 mg PO DAILY
metoprolol tartrate 100 MG tablet
100 mg PO BID
omeprazole 20 MG capsule,delayed release(DR/EC)
20 mg PO DAILY
furosemide 40 MG tablet
80 mg PO DAILY
verapamil 180 MG tablet extended release
360 mg PO DAILY
rosuvastatin 40 mg tablet
40 mg PO QPM
ranolazine 500 mg Tablet Extended Release 12 Hr
500 mg PO DAILY
Patient Comments:
09/04/24-patient stated she only takes one cause she cant pee on it
Discontinued
warfarin [Jantoven] 4 MG tablet
4 mg PO MOWETHFRSA
Patient Comments:
ecw on 09/03/24 shows 4mg only on sunday then 2mg the rest of the days
warfarin 4 mg tablet
4 mg PO SUTU
Discharge Orders:
Discharge Patient (As Directed); Ordered 09/06/24
Ordered By: Martha Tinoco
Discharge Date and Time
Discharge Date/Time: 09/06/24 16:29
Print Language: ANGUILLAN
== END 2024-09-06 16:29 | disposition home or self-care (01) | DRG 291 ==
LOC: 4 EAST ACU 14:09
PROVIDERS: Nurse Practitioner Family; ADMITTING PHYSICIAN Hospitalist; ATTENDING PHYSICIAN Internal Medicine; CONSULT PHYSICIAN Student in an Organized Health Care Education/Training Program; EMERGENCY PHYSICIAN Emergency Medicine; FAMILY PHYSICIAN Family Medicine
DX: I11.0 Hypertensive heart disease with heart failure (principal); I50.33 Acute on chronic diastolic (congestive) heart failure; I47.20 Ventricular tachycardia, unspecified; I48.21 Permanent atrial fibrillation; I42.1 Obstructive hypertrophic cardiomyopathy; Z11.52 Encounter for screening for COVID-19; J44.9 Chronic obstructive pulmonary disease, unspecified; F17.210 Nicotine dependence, cigarettes, uncomplicated; F32.9 Major depressive disorder, single episode, unspecified; F17.200 Nicotine dependence, unspecified, uncomplicated; Z79.01 Long term (current) use of anticoagulants; I48.0 Paroxysmal atrial fibrillation; Z95.810 Presence of automatic (implantable) cardiac defibrillator; F15.10 Other stimulant abuse, uncomplicated; I25.2 Old myocardial infarction
CPT/HCPCS: 71045; 80048; 80053; 83036; 83735; 83880; 84484; 85025; 85027; 85610; 87502; 87811; 93005; 94640; 96374; 99285; 99406

== ENCOUNTER → 2024-09-26 13:41 | Outpatient (REF) | payer OTHER, SELFPAY ==
[2024-09-26 14:32] LABS: INR 3.71; PT 36.5 Sec (11.4-14.6)
== END ==
LOC: REG 13:41
PROVIDERS: ATTENDING PHYSICIAN Internal Medicine; FAMILY PHYSICIAN Family Medicine
DX: I48.21 Permanent atrial fibrillation (principal)
CPT/HCPCS: 36415; 85610

== ENCOUNTER → 2025-03-24 14:02 | Outpatient (REF) | payer MEDICARE, SELFPAY | LOC: RCS 14:02 | PROVIDERS: ATTENDING PHYSICIAN Internal Medicine; FAMILY PHYSICIAN Physician Assistant | DX: I48.21 Permanent atrial fibrillation (principal); I42.1 Obstructive hypertrophic cardiomyopathy; I50.32 Chronic diastolic (congestive) heart failure; I34.0 Nonrheumatic mitral (valve) insufficiency | CPT/HCPCS: 93306 ==

== ENCOUNTER → 2025-05-06 09:17 | Outpatient (REF) | payer MEDICARE, SELFPAY ==
[2025-05-06 11:01] LABS: Hematocrit 42.9 % (37.0-47.0); Hemoglobin 14.1 g/dL (12.0-16.0); Mean Corp Hgb Conc. 32.9 g/dL (33.0-37.0); Mean Corpuscular Volume 91.9 fL (81.0-99.0); Nucleated Red Blood Cells % 0 %; Platelet Count 296 10^3/uL (130-400); Red Cell Dist. Width 13.4 % (11.5-14.5)
[2025-05-06 11:21] LABS: ALT (SGPT) 50 U/L (0-35); AST (SGOT) 48 U/L (14-36); Albumin 4.2 g/dl (3.5-5.0); Alkaline Phosphatase 132 U/L (38-126); Blood Urea Nitrogen 26 mg/dl (7-17); Calcium 9.8 mg/dl (8.4-10.2); Carbon Dioxide 29 mmol/L (22-30); Chloride 106 mmol/L (98-107); Glucose 138 mg/dl (70-99); HDL Cholesterol 52 mg/dl; LDL Cholesterol, Calculated 59 mg/dl; Potassium 3.7 mmol/L (3.5-5.1); Sodium 140 mmol/L (135-145); Total Protein 6.6 g/dl (6.3-8.2); Very Low Density Lipoprotein 27 mg/dl (0-30); eGFR 44.51
[2025-05-06 13:02] LABS: Glycohemoglobin (HgbA1c) 7.5 % (4.0-5.6)
== END ==
LOC: REG 09:17
PROVIDERS: ATTENDING PHYSICIAN Internal Medicine; FAMILY PHYSICIAN Physician Assistant
DX: I10 Essential (primary) hypertension (principal); E78.2 Mixed hyperlipidemia; I50.32 Chronic diastolic (congestive) heart failure; I42.1 Obstructive hypertrophic cardiomyopathy; Z95.810 Presence of automatic (implantable) cardiac defibrillator; Q24.5 Malformation of coronary vessels; F17.210 Nicotine dependence, cigarettes, uncomplicated; Z79.01 Long term (current) use of anticoagulants; F33.1 Major depressive disorder, recurrent, moderate; H25.13 Age-related nuclear cataract, bilateral; F41.9 Anxiety disorder, unspecified; H02.882 Meibomian gland dysfunction right lower eyelid; I34.0 Nonrheumatic mitral (valve) insufficiency; J44.9 Chronic obstructive pulmonary disease, unspecified; Z00.00 Encounter for general adult medical examination without abnormal findings; I47.20 Ventricular tachycardia, unspecified; Z12.31 Encounter for screening mammogram for malignant neoplasm of breast; Z12.11 Encounter for screening for malignant neoplasm of colon; M85.88 Other specified disorders of bone density and structure, other site
CPT/HCPCS: 36415; 80053; 80061; 83036; 85025

== ENCOUNTER → 2025-05-14 08:42 | Outpatient (REF) | payer MEDICARE, SELFPAY | LOC: WDC 08:42 | PROVIDERS: ATTENDING PHYSICIAN Physician Assistant | DX: Z12.31 Encounter for screening mammogram for malignant neoplasm of breast (principal); M85.88 Other specified disorders of bone density and structure, other site | CPT/HCPCS: 77063; 77067; 77080 ==

== ENCOUNTER 2025-09-01 08:23 | Inpatient (IN) | payer MEDICARE, SELFPAY ==
[2025-08-28] VITALS (7 sets, daily range): BP systolic 124–141; BP diastolic 68–85; BMI 23.1; BMI 22.8
[2025-08-28 18:52] LABS: Hematocrit 43.9 % (37.0-47.0); Hemoglobin 14.3 g/dL (12.0-16.0); Mean Corp Hgb Conc. 32.6 g/dL (33.0-37.0); Mean Corpuscular Volume 92.0 fL (81.0-99.0); Nucleated Red Blood Cells % 0 %; Platelet Count 253 10^3/uL (130-400); Red Cell Dist. Width 13.8 % (11.5-14.5)
[2025-08-28 18:57] LABS: INR 1.25; PT 16.0 Sec (11.4-14.6)
[2025-08-28 19:21] LABS: ALT (SGPT) 20 U/L (0-35); AST (SGOT) 22 U/L (14-36); Albumin 4.0 g/dl (3.5-5.0); Alkaline Phosphatase 110 U/L (38-126); Blood Urea Nitrogen 14 mg/dl (7-17); Calcium 9.7 mg/dl (8.4-10.2); Carbon Dioxide 28 mmol/L (22-30); Chloride 101 mmol/L (98-107); Glucose 176 mg/dl (70-99); Potassium 3.2 mmol/L (3.5-5.1); Sodium 134 mmol/L (135-145); Total Protein 6.6 g/dl (6.3-8.2); eGFR > 60.00
--- NOTE | 2025-08-28 20:00 | ED.GENMED ---
History of Present Illness
General
Chief Complaint: Change in Mental Status
Source: patient
Exam Limitations: none
Time Seen by Provider: 08/28/25 19:51
History of Present Illness
History of Present Illness:
See MDM
Past History
Past History
ED Past Medical History: Arrthythmia (Atrial flutter/fib, V. tach, V fib,), CAD, CHF, Hypercholesterolemia, [place], Psychiatric (major depression), Other (hiatal hernia), Other (pyelonephritis) and Other (Cardiomyopathy, heart heart valve problem,
Sudden cardiac )
ED Past Surgical History: Cardiac (Pacer/AICD), Cholecystectomy, Gynecological (tubal ligation), Orthopedic (R hip replacment) and Other (Cardiac ablation done in 2004 at 2005 at [facility], and a colonoscopy in 2006, abd hernia repair)
Social History
Tobacco: Smoker
Alcohol: None
Drug: None and Other
Personal: Partner
Living: alone
Employment: Not employed
Family History
Family History: Cancer (Mother ngozi duct, Brother colon)
Phy Exam
Physical Exam
Physical Exam:
See MDM
Scores
NIH Stroke Score
Level of Consciousness: 0 - Alert
LOC Questions: 0-Answers both correctly
LOC Commands: 0-Performs both correctly
Best Horizontal Gaze: 0-Normal
Visual Kumari: 0=Normal, no visual loss
Facial Palsy: 0=Normal, symmetrical
Motor - Right Arm: 0=No drift 10 seconds
Motor - Left Arm: 0=No drift 10 seconds
Motor - Right Le-No drift 5 seconds
Motor - Left Le-No drift 5 seconds
Limb Ataxia: 0-Absent
Sensation: 0-Normal
Best Language: 0-No aphasia
Dysarthria: 0-Normal
Extinction and Inattention: 0-No abnormality
NIH Total Score:: 0
Course
Orders/Labs/Results
Orders:
Orders
08/28/25 18:41
Complete Blood Count/With Diff Urgent
Comprehensive Metabolic Panel Urgent
INR [Prothrombin Time] Urgent
08/28/25 19:59
CT Head W/o Iv Contrast Urgent
Comment:
Reason For Exam: R side numbness
08/28/25 20:00
Electrocardiogram (*1) Urgent
Reason for Study: TIA/Stroke
EKG- Treatment ONCE
Urinalysis Reflex To Culture Urgent
08/28/25 21:08
Aspirin Chewable [Low Strength Aspirin] 324 mg PO NOW STA
Clopidogrel Bisulfate [Plavix] 300 mg PO NOW STA
Abnormal Lab Results
08/28/25
18:41
MCHC 32.6 L g/dL
(33.0-37.0)
Absolute Monos (auto) 0.8 H 10^3/uL
(0.1-0.6)
Lymphocytes % 19.8 L %
(20.5-51.1)
PT 16.0 H Sec
(11.4-14.6)
Sodium 134 L mmol/L
(135-145)
Potassium 3.2 L mmol/L
(3.5-5.1)
Glucose 176 H mg/dl
(70-99)
08/28/25 18:41
08/28/25 18:41
Vital Signs
Initial and Last Documented VS:
Initial Vital Signs
Temp Pulse Resp BP Pulse Ox
97.8 F 82 18 127/85 100
08/28/25 18:32 08/28/25 18:32 08/28/25 18:32 08/28/25 18:32 08/28/25 18:32
Last Documented Vital Signs
Temp Pulse Resp BP Pulse Ox
97.8 F 86 13 130/71 100
08/28/25 18:32 08/28/25 20:00 08/28/25 20:00 08/28/25 20:00 08/28/25 20:05
MDM/Problems Addressed
Differential Diagnosis Includes:
Note:
CHIEF COMPLAINT(S)
Tingling on the right side and intermittent peripheral vision issues.
HISTORY OF PRESENT ILLNESS
The patient is a 70-year-old female with a history of atrial fibrillation, currently on warfarin therapy. She presented with tingling on the right side of her body and occasional peripheral vision loss in her right eye, which began yesterday. The
patient reported that her vision issue had cleared, but her other eye felt cloudy. There is a concern she might have mixed up her medication with her boyfriends medications. Her INR was subtherapeutic at 1.25. She has a significant risk for stroke
due to her atrial fibrillation, and there is a history of a 'mini-stroke' or TIA with past episodes of slurred speech. There has been no speech slurring this time, but she did experience some confusion. The patient reports significant stress at home
and difficulty due to the current living situation.
SOCIAL DETERMINANTS OF HEALTH
The patient reports significant stress and turmoil at home, possibly impacting her health management and contributing to her confusion and difficulty in correctly taking medications.
PHYSICAL EXAM
General: Alert, no acute distress.
Skin: Warm, dry.
Head: Normocephalic, atraumatic
Neck: Appears supple, trachea midline.
Eyes, Ears, Nose, Mouth, and Throat: Moist mucous membranes. Undergoes
Cardiovascular: No signs of cyanosis. Irregular rhythm
Respiratory: Respirations are non-labored.
Abdomen: Non-distended
Musculoskeletal: No deformities
Neurological: No focal neurological deficit observed.
Psychiatric: Cooperative, appropriate mood and affect.
PLAN
- Perform EKG, urine analysis, and CT scan of the head.
- Consider hospital admission for overnight observation due to persistent symptoms and stroke risk factors.
DIFFERENTIAL DIAGNOSIS
- The Differential Diagnosis includes, in no particular order and is not limited to:
- Transient Ischemic Attack (TIA)
- Stroke
- Medication side effects/mismanagement
- Nonconvulsive seizure
- Migraine with aura
- Hypertensive encephalopathy
- Metabolic disturbance (e.g., hypoglycemia)
- Multiple sclerosis
- Conversion disorder
- Vestibular dysfunction
SUMMARY OF ENCOUNTER
The patient presented to the emergency department with symptoms of right-sided tingling and intermittent peripheral vision loss. Given her history of atrial fibrillation and subtherapeutic INR, there�s a concern for cerebrovascular accident. An EKG,
urine analysis, and CT scan of the head were ordered to investigate these symptoms further. Hospital admission for further monitoring and management was considered due to persistent symptoms and risk factors for stroke.
DISPOSITION
Plan for admission for further observation and management.
MEDICAL DECISION MAKING
- Complexity of Data Reviewed: Chronic conditions affecting care include atrial fibrillation. Differential diagnosis includes the possibilities of TIA, stroke, medication effects, and other neurological conditions.
- Data:
- Category 1: Tests and documents include EKG, urine analysis, and CT scan of the head.
- Category 2: Input from the patient�s living environment, suggesting significant stress affecting health.
- Risk: The decision to consider admission is due to the high-risk factors for cerebrovascular events and ongoing symptoms.
DIAGNOSIS
- Suspected Transient Ischemic Attack (TIA)
- Z86.73 Personal history of transient ischemic attack (TIA), and cerebral infarction without residual deficits
SUMMARY OF ENCOUNTER
The patient, a 70-year-old female with a history of atrial fibrillation, presented with over 24 hours of stroke-like symptoms, including right-sided tingling and intermittent peripheral vision loss. She is at high risk for cerebrovascular events due
to chronic atrial fibrillation and a subtherapeutic INR. In the emergency department, a CT scan of the head was performed, which indicated a possible new small infarct. Given these findings, the patient was loaded with aspirin and clopidogrel
(Plavix) to manage her stroke symptoms and prevent further complications.
DISPOSITION
Admit for further stroke workup.
PLAN
Admit the patient for a further stroke evaluation, given the persistent neurological symptoms and CT findings of a possible small infarct.
INDEPENDENT REVIEW OF LABS AND INTERPRETATION OF TESTS
- My independent review of EKG is atrial flutter, heart rate 75 beats per minute, with left ventricular hypertrophy noted, no ST elevation.
- My independent CT scan interpretation is a possible new small infarct, as per the radiologists report.
MEDICATION RECONCILIATION
- Aspirin was administered.
- Clopidogrel (Plavix) was administered.
MEDICAL DECISION MAKING
1. Number and Complexity of Problems Addressed: Chronic conditions affecting care include atrial fibrillation. Differential diagnosis includes possibilities of Transient Ischemic Attack (TIA), stroke, medication effects, nonconvulsive seizure,
migraine with aura, hypertensive encephalopathy, metabolic disturbance, multiple sclerosis, conversion disorder, vestibular dysfunction.
2. Data:
Category 1:
- Tests and documents include EKG and CT scan of the head.
- My independent interpretation of the EKG showed atrial flutter.
- My independent CT scan interpretation noted a possible new small infarct per the radiologist.
3. Risk: The decision to admit was due to the high-risk factors for cerebrovascular events and the presence of a new possible small infarct on the CT scan.
DIAGNOSIS
- Possible small infarct (ICD-10: I63.9)
*Pulse Oximetry
SaO2: 100
Oxygen Mode of Delivery: Room air
Patient hypoxic: no
*Critical Care Note
Total Time (30-74mins, 75-104mins- exclusive of procedures): Not Applicable
ED Attending Note
-
Portions of this chart may have been created with voice recognition software.� Occasional wrong word or��sound alike� substitutions may have occurred due to the inherent limitations of voice recognition software.
Discharge Plan
Departure
Patient Disposition: Admit
Date of Disposition: 08/28/25
Time of Disposition: 21:13
Admit to: Telemetry
Presentation/result/management discussed w/ accepting MD/DO: Hospitalist
Discharge Problem:
Stroke-like symptoms
Prescriptions:
No Action
citalopram 20 MG tablet
20 mg PO DAILY
metoprolol tartrate 100 MG tablet
100 mg PO BID
omeprazole 20 MG capsule,delayed release(DR/EC)
20 mg PO DAILY
furosemide 40 MG tablet
80 mg PO DAILY
verapamil 180 MG tablet extended release
360 mg PO DAILY
rosuvastatin 40 mg tablet
40 mg PO QPM
ranolazine 500 mg Tablet Extended Release 12 Hr
500 mg PO DAILY
Patient Comments:
09/04/24-patient stated she only takes one cause she cant pee on it
budesonide-formoterol [Symbicort] 80-4.5 mcg/actuation Hfa Aerosol Inhaler
2 puff inhalation R BID Qty: 10.2 0RF
warfarin [Jantoven] 4 mg Tablet
4 mg PO TU Qty: 1 0RF
warfarin [Jantoven] 2 mg Tablet
See Rx Instructions .ROUTE .COMPLEX Qty: 1 0RF
Rx Instructions:
2 mg orally daily every day except Sunday
prednisone 10 mg Tablet
See Rx Instructions .ROUTE .COMPLEX Qty: 30 0RF
Rx Instructions:
Take By Mouth:
40 mg daily x3 days, 30 mg daily x3 days,
20 mg daily x3 days, 10 mg daily x3 days.
Referrals:
Josep Storey MD [Family Provider, Family Practice]
Interventions
Interventions:
*Risk Screen - Suicide Last Done: 08/28/25 20:05
*General Assessment Last Done: 08/28/25 20:05
*Neglect/Abuse Screening Last Done: 08/28/25 20:00
*ED- Fall Risk Assessment Last Done: 08/28/25 20:05
*ED COVID-19 Vaccine History Last Done: 08/28/25 20:05
*ED Influenza Vaccine History Last Done: 08/28/25 20:05
ED- Pulmonary Assessment Last Done: 08/28/25 20:08
ED- Neurological Assessment Last Done: 08/28/25 20:08
ED- Cardiac Assessment Last Done: 08/28/25 20:08
ED Swallowing Screen Last Done: 08/28/25 20:08
Discharge Date and Time
Print Language: ARMENIAN
--- NOTE | 2025-08-28 21:14 | W.PN.UPDATE ---
Addendum entered and electronically signed by Magdiel Curran MD 08/28/25 22:09:
Radiologist suggest CUS in place of H & N CTA in view of NIH < 5.
S/P Loading dose of DAPL at ER.
INR is only 1.25.
NEG HCT for acute ICH.
- Cont. DAPL
- resume warfarin and check daily INR.
- IP TLM
- Neuro consult�
Original Note:
Update Note
Progress Note Update
This note serves as an addendum to the H&P by fur joiner Kimberli Desai
HPI
70F HX HX methamphetamine use,AICD implant, HX VT, HOCM, chr HFpEF, chr warfarin, permanent AF, COPd seen at ER:
- reports felling ' discombobulated ' since yesterday
- INR is sub therapeutic 1.25
- Reports numbness and tingling on the Rt side
- symmetric face and intact sensation in both lower and upper exts.
PHX; see above
Relevant VS
Temp Pulse Resp BP Pulse Ox
97.8 F 86 13 130/71 100
08/28/25 18:32 08/28/25 20:00 08/28/25 20:00 08/28/25 20:00 08/28/25 20:05
PE
Gen: NAD, dishevelled
HEENT: symmetric face, normal speech
Neck:supple
Lungs:CTA
Cor:RRR S1 S2
AIRPORT PLANNER: and intact sensation in both lower and upper exts. NFND
Relevant data�
08/28/25
18:41
WBC 8.9
Hgb 14.3
Plt Count 253
INR 1.25
Sodium 134 L
Potassium 3.2 L
Creatinine 0.9
eGFR > 60.00
Glucose 176 H
Calcium 9.7
Total Bilirubin 1.0
AST 22
ALT 20
Alkaline Phosphatase 110
CT Head W/o Iv Contrast
- No acute intracranial hemorrhage.
- Small area of decreased attenuation in the left posterior parietal-occipital deep white matter which although could represent a new small old infarct in the interval since prior study
- small subacute infarct or less likely focus of deep white matter infection/lesion cannot be entirely excluded.
- Findings again seen compatible with diffuse cortical atrophy with mild nonspecific white matter changes as described above.
Last hospitalist admission: Last hospitalist admission: 09/04/24 -09/06/24
Principal Discharge diagnosis :
- COPD flare
- less likely chronic HFpEF
- active tobacco use with nicotine dependence
Chronic Discharge diagnosis
- permanent atrial fibrillation on warfarin, hypertrophic cardiomyopathy, HX V. tach with ICD placement, HX methamphetamine use
ASSESSMENT & PLAN
Pending Rx reconciliation
Suspect acute CVA at Lt posterior parietal-occipital deep white matter ? embolic in setting of sub Rxtic INE and Perm A Fib
Acute felling ' discombobulated ' since yesterday suspect mental cloudiness
Associated Rt sided paraesthesia without motor weakness
Rt hand dominant
- s/p Loading dose of ASA/Plavix - cont. DAPL till further eval by Neuro
- Onset > 4hrs, NIH Zero upon arrival - not TNK candidate
- NEG HCT for acute ICH
- New small old infarct in the interval since prior study @ Lt. posterior parietal-occipital deep white matter
- INR is sub therapeutic 1.25
- H & N CTA but NIH is less than 5
- Per September 2020 note - exchanged generator , NOT MRI conditional
- Neuro consult
Permanent A Fib on warfarin
Suspect poor compliance with Warfarin
HOCM HX
HX VT with ICD
- HEAT TREATER HEAD metoprolol, verapamil, Ranexa
- INR sub therapeutic
- Resume Warfarin OP dose
- daily INR
- ECHO
- To consider Card consult
HX chronic HFpEF v
- To clarify home PO Lasix daily (Pending Rx reconciliation)
Active tobacco use/Nicotine dependence
- needs to quit but not ready
Active Met snorting last use 4 days ago
HX methamphetamine use
- check UDS
DVT Px: on Warfarin
Full code
IP TLM
--- NOTE | 2025-08-28 21:18 | HPS.HSE ---
Family Physician
-
Family Physician: Josep Storey
Chief Complaint
-
right eye visual blurriess, numbness right side face
History of Present Illness
70-year-old female complaining of tingling on the right side of her body with occasional peripheral vision loss in her right eye along with feeling more confused having difficulty concentrating on a conversation which began yesterday 08/27/2025.
She reports she thought her vision had cleared but her other eye felt cloudy. She was unsure whether she might of mixup medication with her boyfriend's stating she might of taken his blood pressure and cholesterol medication instead of hers. She
is using methamphetamine snorting twice weekly with last use she thinks 4 days ago. She is unsure when she took Coumadin last week did miss doses Sunday possibly yesterday . She still complains of right peripheral field
blurriness. She is on Coumadin for history of A-fib however INR was subtherapeutic at 1.25. She denies headache, fever, chills, chest pain, palpitations, cough, shortness of breath, abdominal pain, nausea, vomiting, diarrhea, urinary symptoms.
She has past medical history undiagnosed cognitive impairment short-term memory A-fib a flutter, status post cardiac ablation 2004 2005 V. tach, V-fib cardiomyopathy,, pacer/AICD, CAD, CHF, HLD, depression, hiatal hernia, active smoker
Medical History
Past Medical History
Past Medical History: Reports Other
Additional Past Medical History:
HFpEF
Ventricular Tachycardia
Cardiac arrest
Pacemaker/AICD
Atrial Fibrillation
Hypertrophic obstructive cardiomyopathy
Depression
Nicotine abuse
Methamphetamine use snorts twice weekly
Past Surgical History: Reports Other
Additional Past Surgical History:
Cholecystectomy
Hernia repair
Defibrillator/AICD
Social History
Tobacco: Smoker (20 pack year history, currently smokes approximately 5 cigarettes a day)
Alcohol: None
Drug: Marijuana (smokes a few times a week)
Personal: Single
Living: With Family
Employment: Disabled
Family History
Family History: Other (Mother: Bile duct ca, A-fib; Father: Blood ca; Brother: Rectal ca; Daughter: rectal ca)
Allergies / Home Medications
Allergies reflects when Allergies were last updated in [facility].
Home Medications with original date entered in [facility]
Allergy/Medication List:
Allergies
Allergy/AdvReac Type Severity Reaction Status Date / Time
amiodarone Allergy Shortness Verified 09/04/24 10:52
of Breath
morphine Allergy Vomiting Verified 09/04/24 10:52
Home Medications
citalopram 20 mg tablet 20 mg PO DAILY Mental health 07/13/15
metoprolol tartrate 100 mg tablet 100 mg PO BID Blood pressure 11/25/19
omeprazole 20 mg capsule,delayed release 20 mg PO DAILY Gastrointestinal issue 11/25/19
furosemide 40 mg tablet 80 mg PO DAILY Fluid retention/Swelling 09/06/20
verapamil 180 mg tablet,extended release 360 mg PO DAILY Blood pressure 09/06/20
rosuvastatin 40 mg tablet 40 mg PO QPM High Cholesterol 09/08/23
ranolazine 500 mg tablet,extended release,12 hr 500 mg PO DAILY Heart Disease/Condition 09/04/24
budesonide-formoterol HFA 80 mcg-4.5 mcg/actuation aerosol inhaler (Symbicort) 2 puff inhalation R BID Lung/breathing issues #10.2 grams 09/06/24
dapagliflozin propanediol 10 mg tablet (Farxiga) 10 mg PO DAILY 08/28/25
warfarin 2 mg tablet (Jantoven) 2 mg PO DIRECTED Blood clot prevention/tx 08/28/25
warfarin 4 mg tablet (Jantoven) 4 mg PO MOTU Blood clot prevention/tx 08/28/25
Review of Systems
-
History Source: Patient
A 12 point ROS was completed and negative except as noted: Yes
Constitutional: Denies Fever or Chills
EENT: Reports Other (Right peripheral field reported visual haziness); Denies Sore Throat or Runny Nose
Respiratory: Denies Cough or Trouble Breathing
Cardiac: Denies Chest Pain, Diaphoresis, Palpitations or Syncope
Abdomen/GI: Denies Abdominal Pain, Nausea, Vomiting, Diarrhea, Constipated, Bloody Stools or Black Stools
: Denies Dysuria, Frequency, Flank Pain, Incontinence, Difficulty Voiding or Urgency
Musculoskeletal: Denies Joint Pain or Edema
Skin: Denies Itching or Rash
Neurological: Reports Numbness (Right side); Denies Dizzy, Headache or Weakness
Endocrine: Reports No Symptoms
Hematologic/Lymphatic: Reports No Symptoms
Psych: Reports Calm
Physical Exam
Vital Signs
Vital Signs
Temp Pulse Resp BP Pulse Ox
97.8 F 86 13 130/71 100
08/28/25 18:32 08/28/25 20:00 08/28/25 20:00 08/28/25 20:00 08/28/25 20:05
Physical Exam
General: Conversant; No Fever or Chills
HEENT: NormoCephalic, Anicteric, PERRLA, [place] Conjunctivae, No Ptosis and Neck Nontender
Respiratory: Clear; No Wheezes, Rales or Rhonchi
Cardiac: S1/S2 and Murmur (2 out of 6 systolic); No Rub, Gallop or Peripheral Edema
Breast: Deferred by me
GI: Soft, Non Tender, Non Distended and Normal Bowel Sounds
Rectal: Deferred by Provider
Genito-urinary: Deferred by me
Musculoskeletal: No Clubbing, No Cyanosis and No Edema
Skin: Warm and Dry; No Rash
Neuro: Awake, Alert, Oriented (To name, place, daughter but not history, medications), Cranial Nerves Intact and No Sensory Deficits; No Slurred Speech, Facial Droop, Tremors or Sedated
Psych: Calm
Laboratory Results
-
08/28/25 18:41
08/28/25 18:41
Laboratory Results
PT 16.0 Sec (11.4-14.6) H 08/28/25 18:41
INR 1.25 08/28/25 18:41
Total Bilirubin 1.0 mg/dl (0.2-1.3) 08/28/25 18:41
AST 22 U/L (14-36) 08/28/25 18:41
ALT 20 U/L (0-35) 08/28/25 18:41
Alkaline Phosphatase 110 U/L (38-126) 08/28/25 18:41
Data Reviewed
-
CT Scan: Report Reviewed by me
Lab Data: Labs Reviewed by me
Impression/Plan
-
Impression/plan:
Observation telemetry
#New versus subacute/old infarct left posterior parietal deep white matter in setting of Subtherapeutic INR/A-fib on Coumadin and methamphetamine use
Right-sided body tingling, peripheral visual loss right eye
- Consult Neuro
-September 2020 implant: ICD Pulse Generator: G[employer], [employer] EL ICD ; Model# D121; Serial# [id number] MRI CONDITIONAL
- CTA head and neck
-Resume warfarin 2 mg daily except 4 mg on Mondays and Tuesdays
-Follow INR 1.25 last med was taken on 08/24/2025 4 mg
-Check UDS
-2D echo
-PT/OT/case management consult
CT head contrast:Small area of decreased attenuation in the left posterior parietal-occipital deep white matter which although could represent a new small old infarct in the interval since prior study, small subacute infarct or less likely
focus of deep white matter infection/lesion cannot be entirely excluded.
#History of methamphetamine use
Patient snorting meth twice weekly last use was 4 days ago 08/24/2020
- Cessation advised
#Hypokalemia
K3.2
KCl 40 mEq
#Cognitive impairment not formally diagnosed
Patient unable to give history or medication list has poor recall states this is normal for her
#Permanent A-fib with subtherapeutic INR on Coumadin
#History of ablations 03/2006 [facility]
Continue warfarin, metoprolol, verapamil
--Resume warfarin 4 mg daily except 2 mg on Mondays and Tuesdays
- Follows with [facility] cardiology
2D echo 03/24/2025: EF 55-60%, normal LVS LVSF no wall abnormalities, severe mitral regurg, mild TR
#History severe mitral regurg
#Nicotine abuse
#Smoking quarter pack a day
-Cessation advised
#Chronic heart failure preserved EF
I/O, daily weight
cont farxiga, lasix 80 mg daily
#History of cardiac arrest V-fib V. tach arrest
#Pacer/AICD--September 2020 implant: ICD Pulse Generator: Goojet, [employer] EL ICD DR; Model# D121; Serial# [id number] MRI CONDITIONAL
#HLD
-Check lipid profile, crestor 40 mg daily
#Depression
- Continue Celexa 20 mg daily
#Hiatal hernia
DVT prophylaxis
Resume warfarin
Full code
[2025-08-28] MEDS: LOW STRENGTH ASPIRIN 324 MG PO (21:20)
[2025-08-28] MEDS: PLAVIX 300 MG PO (21:20)
[2025-08-28 22:16] LABS: Urine Character Clear (Clear)
[2025-08-28] MEDS: KCL 40 MEQ PO (22:38)
[2025-08-28 22:49] LABS: Urine White Cell 26-30 /HPF (0-5)
[2025-08-29] VITALS (8 sets, daily range): BP systolic 104–145; BP diastolic 57–76; PULSE 60–75; O2SAT 96–99; BMI 22.8; BMI 22.7
[2025-08-29] MEDS: COUMADIN 2 MG PO ×2 (00:32→17:56)
--- NOTE | 2025-08-29 01:48 | PTCARENOTE ---
Receive pt from ER. Pt alert oriented X3 calm and cooperative, in no distress. Pt assisted X1 to her bed, steady gate. Pt oriented to the room, call patterson within reach. Bed alarm in place because of reported confusion. Pt on Afib/Aflutter on
telemonitor. VSS (T=99.1, HR=81, RR=18, KS=590/83, JkM0=050% on RA). Pt states that she has blurred vision on the right peripheral eye. Pt also states that she has numbness and tingling on her right upper and lower extremities. She also reports
decrease sensation on the right upper extremity. NIH=1, Pt passed the swallowing test. Will continue to monitor the pt.
[2025-08-29 07:17] LABS: Hematocrit 39.0 % (37.0-47.0); Hemoglobin 12.8 g/dL (12.0-16.0); Mean Corp Hgb Conc. 32.8 g/dL (33.0-37.0); Mean Corpuscular Volume 93.3 fL (81.0-99.0); Nucleated Red Blood Cells % 0 %; Platelet Count 234 10^3/uL (130-400); Red Cell Dist. Width 13.7 % (11.5-14.5)
--- NOTE | 2025-08-29 07:30 | CON.NEURO ---
Consultation
Order
Date of Consultation: 08/29/25
Requesting Provider: Maxine Desai CRNP
Reason for Consult: Subacute versus old CVA A-fib, methamphetamine use
Neurology Consultation Note.
HPI: This is a 70-year-old right-handed woman who presented to [facility] on 08/24/2025 with right sided sensory symptoms. The patient reports that the tingling in her right arm and leg started simultaneously on 08/26/2025. She
denies facial tingling but notes that her face is not affected while the rest of her right side continues to have tingling sensation. The patient delayed coming to the hospital initially but ultimately decided to seek care because she became
disoriented stating she 'couldn't think clearly.' According to EMR the patient had intermittent right visual field deficits and a headache prior to coming to the hospital but denies having a headache currently.
ER VS: 127/85, 82, afebrile.
EKG: A flutter with variable AV block.
PDMP:none
Labs: INR�1.25, glucose 176, sodium 134, creatinine�0.9, LDL�59, urine tox positive for THC, methamphetamines.
CT head wo contrast-Small area of decreased attenuation in the left posterior parietal-occipital deep white matter, atrophy
PMH: PA-fib, Chronic HFpEF/moderate to severe MR, HOCM/VT, Intramyocardial bridge:, h/o TIA, HTN, DLP, COPD, DREW, MDD, Nicotine, amphetamine use disorder, GERD
PSH: PPM, R SOREN, cholecystectomy, bilateral tubal ligation,
SH: Lives with boyfriend and daughter; current smoker (4-5 cigarettes per day), very rare alcohol use; Previously worked in a greenhouse, independent in ADLs
FH: Colon cancer
All: Morphine, amiodarone,
ROS: HEENT: Negative for headache (currently), positive for headache prior to presentation.
Neurological: Positive for tingling sensation on entire right side (excluding face), disorientation, unclear thinking, and feeling foggy.
General: Well developed. In no acute distress.
Cardio: irregular rate and rhythm without murmur. Extremities are without cyanosis or edema.
Neuro:
Mental Status: Alert, oriented to person, place, and date. Normal attention and recall. Good fund of knowledge. Follows complex requests across the midline. Comprehension, naming, and repetition intact.
Cranial Nerves: Pupils are equally round and reactive to light. EOMs full. Visual roach full to confrontation. No ptosis. No nystagmus. V1-V3 intact to light touch and pinprick bilaterally, symmetric. Face symmetric. Normal hearing AU. The
palate elevated well. SCMs and traps 5/5. Tongue midline. No dysarthria.
Motor: Normal bulk and tone. No pronator or arm drift. Strength 5/5 throughout. No clonus.
Reflexes: 2+ throughout the upper extremities and 3+ knees. Negative Josefa's bilaterally.
Sensory: Reduced vibration at the toes
Coordination: No dysmetria or tremor.
Gait: deferred
Assessment and Plan:
I. Probable left PRINTING AGENT/MCA territory stroke.
II. PAF, subtherapeutic INR.
III. Nicotine/amphetamine use disorder.
-Continue Telemetry monitoring
-Please obtain CTA head and neck
-Repeat CT head in 24 hours from the initial one
-Continue warfarin with INR goal of 2.0�3.0
-LDL is at goal
-Addictive psychiatry consult
-DVT prophylaxis.
-Will follow.
I personally reviewed all radiology and labs along with past medical records pertinent to current medical problems. Total time spent in patient care is 60 minutes.
Thank you for allowing us to participate in the care of this patient. We will continue to follow. Please do not hesitate to contact us with any questions or concerns.
Subjective/Objective
Subjective Data
Date of Service: August 29, 2025
Objective Data
Vital Signs
Temp Pulse Resp BP Pulse Ox
36.8 C 72 18 129/76 99
08/29/25 03:41 08/29/25 03:41 08/29/25 03:41 08/29/25 03:41 08/29/25 03:41
Lab Results
08/29/25 05:58
PT 16.0 Sec (11.4-14.6) H 08/28/25 18:41
INR 1.25 08/28/25 18:41
Sodium 134 mmol/L (135-145) L 08/28/25 18:41
Potassium 3.2 mmol/L (3.5-5.1) L 08/28/25 18:41
BUN 14 mg/dl (7-17) 08/28/25 18:41
Glucose 176 mg/dl (70-99) H 08/28/25 18:41
Calcium 9.7 mg/dl (8.4-10.2) 08/28/25 18:41
Ur Buprenorphine Negative (Negative) 08/28/25 22:07
Patient Allergies
amiodarone Allergy (Verified 09/04/24 10:52)
Shortness of Breath
morphine Allergy (Verified 09/04/24 10:52)
Vomiting
Medications
-
Active Medications
Generic Name Dose Route Start Last Admin
Trade Name Freq PRN Reason Stop Dose Admin
Acetaminophen 650 mg 08/28/25 23:50
Acetaminophen 325 Mg Tablet PO 09/25/25 23:49
Q4HPRN PRN
mild pain/MARMOLEJO/temp> 100.4F
Aspirin 81 mg 08/29/25 08:00
Aspirin 81 Mg Chewable Tablet PO 09/26/25 07:59
DAILY DIVYA
Budesonide/Formoterol Fumarate 2 puff 08/29/25 08:00
Symbicort Inhaler 80/4.5 INH 09/26/25 07:59
R BID DIVYA
Protocol
Citalopram Hydrobromide 20 mg 08/29/25 08:00
Citalopram 20 Mg Tablet PO 09/26/25 07:59
DAILY DIVYA
Clopidogrel Bisulfate 75 mg 08/29/25 08:00
Clopidogrel 75 Mg Tablet PO 09/26/25 07:59
DAILY DIVYA
Dapagliflozin 10 mg 08/29/25 08:00
Dapagliflozin (Farxiga) 10 Mg Tablet PO 09/26/25 07:59
DAILY DIVYA
Furosemide 80 mg 08/29/25 08:00
Furosemide 40 Mg Tablet PO 09/26/25 07:59
DAILY DIVYA
Metoprolol Tartrate 100 mg 08/29/25 08:00
Metoprolol 100 Mg Regular Release Tablet PO 09/26/25 07:59
BID DIVYA
Pantoprazole Sodium 40 mg 08/29/25 08:00
Pantoprazole 40 Mg Delayed Release Tablet PO 09/26/25 07:59
DAILY DIVYA
Ranolazine 500 mg 08/29/25 08:00
Ranolazine 500 Mg Extended Release Tablet PO 09/26/25 07:59
DAILY DIVYA
Rosuvastatin Calcium 40 mg 08/29/25 18:00
Rosuvastatin (Crestor) 20 Mg Tablet PO 09/26/25 17:59
QPM DIVYA
Sodium Chloride 0 flush 08/28/25 23:00
Sodium Chloride 0.9% (Flush) Syringe IV 09/25/25 22:59
PER PROTOCOL DIVYA
Verapamil HCl 360 mg 08/29/25 08:00
Verapamil 180 Mg (Extended Release) Tablet PO 09/26/25 07:59
DAILY DIVYA
Warfarin Sodium 4 mg 08/31/25 18:00
Warfarin 4 Mg Tablet PO 09/05/25 17:59
MoTu@1800 DIVYA
Warfarin Sodium 2 mg 08/28/25 23:00 08/29/25 00:32
Warfarin 2 Mg Tablet PO 09/02/25 22:59 2 mg
[email or web address] [facility] Administration
Home Medications
�Medication �Instructions �Recorded
citalopram 20 mg tablet 20 mg PO DAILY Mental health 07/13/15
metoprolol tartrate 100 mg tablet 100 mg PO BID Blood pressure 11/25/19
omeprazole 20 mg capsule,delayed 20 mg PO DAILY Gastrointestinal 11/25/19
release issue
furosemide 40 mg tablet 80 mg PO DAILY Fluid 09/06/20
retention/Swelling
verapamil 180 mg tablet,extended 360 mg PO DAILY Blood pressure 09/06/20
release
rosuvastatin 40 mg tablet 40 mg PO QPM High Cholesterol 09/08/23
ranolazine 500 mg tablet,extended 500 mg PO DAILY Heart 09/04/24
release,12 hr Disease/Condition
budesonide-formoterol HFA 80 2 puff inhalation R BID 09/06/24
mcg-4.5 mcg/actuation aerosol Lung/breathing issues #10.2 grams
inhaler (Symbicort)
dapagliflozin propanediol 10 mg 10 mg PO DAILY 08/28/25
tablet (Farxiga)
warfarin 2 mg tablet (Jantoven) 2 mg PO DIRECTED Blood clot 08/28/25
prevention/tx
warfarin 4 mg tablet (Jantoven) 4 mg PO MOTU Blood clot 08/28/25
prevention/tx
Vital Signs and Labs
-
Vital Signs and Labs:
Vital Signs
Temp Pulse Resp BP Pulse Ox
36.6 C 74 16 141/72 100
08/29/25 07:00 08/29/25 08:33 08/29/25 08:33 08/29/25 08:12 08/29/25 08:33
Lab Results
08/29/25 05:58
08/29/25 05:58
PT 16.0 Sec (11.4-14.6) H 08/28/25 18:41
INR 1.25 08/28/25 18:41
Sodium 138 mmol/L (135-145) 08/29/25 05:58
Potassium 4.4 mmol/L (3.5-5.1) D 08/29/25 05:58
BUN 17 mg/dl (7-17) 08/29/25 05:58
Glucose 124 mg/dl (70-99) H 08/29/25 05:58
Calcium 9.1 mg/dl (8.4-10.2) 08/29/25 05:58
LDL Cholesterol, Calc 59 mg/dl 08/29/25 05:58
Ur Buprenorphine Negative (Negative) 08/28/25 22:07
Medications
-
Medications:
Generic Name Dose Route Start Last Admin
Trade Name Freq PRN Reason Stop Dose Admin
Acetaminophen 650 mg 08/28/25 23:50
Acetaminophen 325 Mg Tablet PO 09/25/25 23:49
Q4HPRN PRN
mild pain/MARMOLEJO/temp> 100.4F
Aspirin 81 mg 08/29/25 08:00 08/29/25 08:12
Aspirin 81 Mg Chewable Tablet PO 09/26/25 07:59 81 mg
DAILY DIVYA Administration
Budesonide/Formoterol Fumarate 2 puff 08/29/25 08:00 08/29/25 08:14
Symbicort Inhaler 80/4.5 INH 09/26/25 07:59 2 puff
R BID DIVYA Administration
Protocol
Citalopram Hydrobromide 20 mg 08/29/25 08:00 08/29/25 08:13
Citalopram 20 Mg Tablet PO 09/26/25 07:59 20 mg
DAILY DIVYA Administration
Clopidogrel Bisulfate 75 mg 08/29/25 08:00 08/29/25 08:12
Clopidogrel 75 Mg Tablet PO 09/26/25 07:59 75 mg
DAILY DIYVA Administration
Dapagliflozin 10 mg 08/29/25 08:00 08/29/25 08:12
Dapagliflozin (Farxiga) 10 Mg Tablet PO 09/26/25 07:59 10 mg
DAILY DIVYA Administration
Furosemide 80 mg 08/29/25 08:00 08/29/25 08:12
Furosemide 40 Mg Tablet PO 09/26/25 07:59 80 mg
DAILY DIVYA Administration
Metoprolol Tartrate 100 mg 08/29/25 08:00 08/29/25 08:12
Metoprolol 100 Mg Regular Release Tablet PO 09/26/25 07:59 100 mg
BID DIVYA Administration
Pantoprazole Sodium 40 mg 08/29/25 08:00 08/29/25 08:11
Pantoprazole 40 Mg Delayed Release Tablet PO 09/26/25 07:59 40 mg
DAILY DIVYA Administration
Ranolazine 500 mg 08/29/25 08:00 08/29/25 08:12
Ranolazine 500 Mg Extended Release Tablet PO 09/26/25 07:59 500 mg
DAILY DIVYA Administration
Rosuvastatin Calcium 40 mg 08/29/25 18:00
Rosuvastatin (Crestor) 20 Mg Tablet PO 09/26/25 17:59
QPM DIVYA
Sodium Chloride 0 flush 08/28/25 23:00 08/29/25 08:13
Sodium Chloride 0.9% (Flush) Syringe IV 09/25/25 22:59 1 flush
PER PROTOCOL DIVYA Administration
Verapamil HCl 360 mg 08/29/25 08:00 08/29/25 08:11
Verapamil 180 Mg (Extended Release) Tablet PO 09/26/25 07:59 360 mg
DAILY DIVYA Administration
Warfarin Sodium 4 mg 08/31/25 18:00
Warfarin 4 Mg Tablet PO 09/05/25 17:59
MoTu@1800 DIVYA
Warfarin Sodium 2 mg 08/28/25 23:00 08/29/25 00:32
Warfarin 2 Mg Tablet PO 09/02/25 22:59 2 mg
[email or web address] DIVYA Administration
Home Medications
-
Home Medications
citalopram 20 mg tablet 20 mg PO DAILY Mental health 07/13/15
metoprolol tartrate 100 mg tablet 100 mg PO BID Blood pressure 11/25/19
omeprazole 20 mg capsule,delayed release 20 mg PO DAILY Gastrointestinal issue 11/25/19
furosemide 40 mg tablet 80 mg PO DAILY Fluid retention/Swelling 09/06/20
verapamil 180 mg tablet,extended release 360 mg PO DAILY Blood pressure 09/06/20
rosuvastatin 40 mg tablet 40 mg PO QPM High Cholesterol 09/08/23
ranolazine 500 mg tablet,extended release,12 hr 500 mg PO DAILY Heart Disease/Condition 09/04/24
budesonide-formoterol HFA 80 mcg-4.5 mcg/actuation aerosol inhaler (Symbicort) 2 puff inhalation R BID Lung/breathing issues #10.2 grams 09/06/24
dapagliflozin propanediol 10 mg tablet ([facility] [employer]) 10 mg PO DAILY 08/28/25
warfarin 2 mg tablet (Jantoven) 2 mg PO DIRECTED Blood clot prevention/tx 08/28/25
warfarin 4 mg tablet (Jantoven) 4 mg PO MOTU Blood clot prevention/tx 08/28/25
[2025-08-29 07:46] LABS: ALT (SGPT) 17 U/L (0-35); AST (SGOT) 21 U/L (14-36); Albumin 3.2 g/dl (3.5-5.0); Alkaline Phosphatase 86 U/L (38-126); Blood Urea Nitrogen 17 mg/dl (7-17); Calcium 9.1 mg/dl (8.4-10.2); Carbon Dioxide 29 mmol/L (22-30); Chloride 107 mmol/L (98-107); Estimated Creatinine Clearance 51 ml/min; Glucose 124 mg/dl (70-99); HDL Cholesterol 49 mg/dl; LDL Cholesterol, Calculated 59 mg/dl; Potassium 4.4 mmol/L (3.5-5.1); Sodium 138 mmol/L (135-145); Total Protein 5.5 g/dl (6.3-8.2); Very Low Density Lipoprotein 19 mg/dl (0-30); eGFR > 60.00
[2025-08-29] MEDS: CALAN EXTENDED RELEASE 360 MG PO (08:11)
[2025-08-29] MEDS: PROTONIX 40 MG PO (08:11)
[2025-08-29] MEDS: PLAVIX 75 MG PO (08:12)
[2025-08-29] MEDS: LOW STRENGTH ASPIRIN 81 MG PO (08:12)
[2025-08-29] MEDS: RANEXA EXTENDED RELEASE 500 MG PO (08:12)
[2025-08-29] MEDS: LOPRESSOR 100 MG PO ×2 (08:12→19:58)
[2025-08-29] MEDS: LASIX 80 MG PO (08:12)
[2025-08-29] MEDS: FARXIGA 10 MG PO (08:12)
[2025-08-29] MEDS: CELEXA 20 MG PO (08:13)
[2025-08-29] MEDS: FLUSH (NSS) 1 FLUSH IV (08:13)
[2025-08-29] MEDS: SYMBICORT 80/4.5 MCG INHALER 2 PUFF INH ×2 (08:14→19:49)
--- NOTE | 2025-08-29 09:43 | CM ---
Met with patient at bedside
[facility] form completed
Pharmacy verified: [facility] [address]
Lives w/ daughter; one floor home
Independent with ambulation steps and ADLs; drives
Daughter will transport home
No SNF utilization history; home health w/ DH in the past
Discharge plan to be determined; Case Management will monitor and support needs/services when identified
[2025-08-29 10:19] LABS: INR 1.20; PT 15.5 Sec (11.4-14.6)
--- NOTE | 2025-08-29 11:58 | W.PN.HOSP.TC ---
Today's Communication/Plan
-
Assessment / Plan
Assessment / Plan
General: No Apparent Distress, Comfortable and Conversant
HEENT: NormoCephalic, Moist mucous membranes, Atraumatic
Respiratory: Clear and Non Labored Respirations
Cardiac: S1/S2 and Regular Rhythm; No Rub or Gallop
GI: Soft, Non Tender, Non Distended and Normal Bowel Sounds
Musculoskeletal: No Edema, no deformity
Skin: Warm and dry
: NO [place]
Neuro: Awake, Alert, right upper extremity paresthesias, no gross motor deficits
Psych: Calm and cooperative
Ms. Park is a 70-year-old female with a medical history of HFpEF, hypertrophic obstructive cardiomyopathy, V. tach arrest (status post pacemaker/AICD), A-fib (on warfarin), nicotine abuse, and methamphetamine use (snorts) who presented with acute
onset right-sided paresthesias and peripheral vision loss in the right eye. She also reported a headache which has since resolved. CT brain showed multiple abnormalities, which are chronic but others could be small subacute infarcts. Her blood
pressure has remained stable. Labs were remarkable for mild hyponatremia of 134, mild hypokalemia of 3.2 and a subtherapeutic INR of 1.25. She reports having missed multiple doses of her home warfarin recently. She was admitted for further
evaluation and management of strokelike symptoms.
Suspected CVA:
- Likely due to subtherapeutic INR after patient missed multiple doses recently of her warfarin
- CT brain without contrast shows multiple abnormalities some of which are possibly consistent with acute infarct
- Unable to obtain MRI due to noncompatible pacemaker
- CT angiography of the head shows occlusion of the P2 a segment of the left PAINT POURER which is likely the etiology of her symptoms
- Appreciate neurology guidance, started on aspirin and Plavix, continue rosuvastatin 40 mg at night
- Continue warfarin with INR goal of 2.0-3.0, encourage adherence with medication regimen
- Encourage avoidance of methamphetamine use
- PT/OT
A-fib:
- Currently rate controlled
- Continue beta-blockade with metoprolol tartrate 100 mg p.o. twice daily
- Continue anticoagulation with warfarin with INR goal 2.0-3.0
HFpEF:
- Chronic, currently compensated
- Continue beta-blockade with metoprolol tartrate 100 mg p.o. twice daily
- Afterload reduction with verapamil 360 mg p.o. daily
- Continue home Lasix 80 mg p.o. daily
Nicotine abuse:
- Advise smoking cessation
- Nicotine patch provided
Hypertrophic obstructive cardiomyopathy:
- AICD in place
- Continue beta-blockade with home metoprolol tartrate 100 mg p.o. twice daily
DVT prophylaxis: Warfarin
CODE STATUS: Full code
Total time spent on today's encounter was 55 minutes.
Anticipated Discharge: 24 - 48 hours
Subjective/Interval History
-
Date of Service: August 29, 2025
Patient was seen and examined at bedside this morning. Still experiencing right upper extremity paresthesias without motor weakness.
Objective Data
-
Labs:
Laboratory Results
08/29/25 08/29/25
05:58 09:25
WBC 7.5
Hgb 12.8
Hct 39.0
Plt Count 234
PT 15.5 H
INR 1.20
Sodium 138
Potassium 4.4 D
Chloride 107
Carbon Dioxide 29
BUN 17
Creatinine 0.9
Glucose 124 H
Calcium 9.1
Total Bilirubin 0.7
AST 21
ALT 17
Alkaline Phosphatase 86
Vital Signs:
Vital Signs
Temp Pulse Resp BP Pulse Ox
97.8 F 74 16 141/72 100
08/29/25 07:00 08/29/25 08:33 08/29/25 08:33 08/29/25 08:12 08/29/25 08:33
I&O
08/28/25 08/29/25 08/30/25
06:59 06:59 06:59
Output Total 425 / 425
Balance -425 / -425
Review of Systems
-
History Source: Patient
All other systems: Reviewed and negative
Neuro: Reports Numbness (Right upper extremity paresthesias)
Physical Exam
-
General: No Apparent Distress
[2025-08-29] MEDS: NICODERM TRANSDERMAL TRANSDERM (12:51)
--- NOTE | 2025-08-29 16:26 | PTCARENOTE ---
Pt AAO x3, ENRIQUEZ well, OOB to BR; stacy well, no c/o weakness dizziness. NIHSS 1- pt c/o 'tingling' in RUE/RLE; has blurry peripheral vision laterally in Rt eye. VSS. Telemetry:a-flutter/V-pacing. On room air- pulse ox 96%, no SOB noted. Abd soft,
stacy PO well. Voids in BR without difficulty. Resting in bed at preswent. Will continue to monitor.
[2025-08-29] MEDS: CRESTOR 40 MG PO (17:57)
[2025-08-30] VITALS (8 sets, daily range): BP systolic 86–121; BP diastolic 52–72; BMI 22.4
[2025-08-30] MEDS: SYMBICORT 80/4.5 MCG INHALER 2 PUFF INH ×2 (07:32→20:16)
[2025-08-30 08:42] LABS: Hematocrit 40.5 % (37.0-47.0); Hemoglobin 13.5 g/dL (12.0-16.0); Mean Corp Hgb Conc. 33.3 g/dL (33.0-37.0); Mean Corpuscular Volume 88.4 fL (81.0-99.0); Nucleated Red Blood Cells % 0 %; Platelet Count 256 10^3/uL (130-400); Red Cell Dist. Width 13.9 % (11.5-14.5)
[2025-08-30 08:49] LABS: INR 1.24; PT 15.9 Sec (11.4-14.6)
[2025-08-30] MEDS: NICODERM TRANSDERMAL TRANSDERM (09:03)
[2025-08-30] MEDS: CALAN EXTENDED RELEASE 360 MG PO (09:04)
[2025-08-30] MEDS: FARXIGA 10 MG PO (09:04)
[2025-08-30] MEDS: LOPRESSOR 100 MG PO (09:04)
[2025-08-30] MEDS: PLAVIX 75 MG PO (09:05)
[2025-08-30] MEDS: CELEXA 20 MG PO (09:05)
[2025-08-30] MEDS: LOVENOX 60 MG SC ×2 (09:05→22:28)
[2025-08-30] MEDS: LOW STRENGTH ASPIRIN 81 MG PO (09:05)
[2025-08-30] MEDS: LASIX 80 MG PO (09:05)
[2025-08-30] MEDS: RANEXA EXTENDED RELEASE 500 MG PO (09:05)
[2025-08-30] MEDS: PROTONIX 40 MG PO (09:05)
[2025-08-30 09:07] LABS: ALT (SGPT) 17 U/L (0-35); AST (SGOT) 19 U/L (14-36); Albumin 3.5 g/dl (3.5-5.0); Alkaline Phosphatase 99 U/L (38-126); Blood Urea Nitrogen 14 mg/dl (7-17); Calcium 9.2 mg/dl (8.4-10.2); Carbon Dioxide 26 mmol/L (22-30); Chloride 104 mmol/L (98-107); Estimated Creatinine Clearance 51 ml/min; Glucose 125 mg/dl (70-99); Potassium 4.0 mmol/L (3.5-5.1); Sodium 136 mmol/L (135-145); Total Protein 5.8 g/dl (6.3-8.2); eGFR > 60.00
--- NOTE | 2025-08-30 12:01 | W.PN.NEURO.1 ---
Today's Communication / Plan
-
.
Subjective/Objective
Subjective Data
Date of Service: August 30, 2025
Neurology follow-up note.
Ms. Park reports experiencing visual symptoms described as 'getting cold' and 'like snow' on the right side, which she states is significantly improved. She does have chronic floaters. The patient admits to missing doses of her Coumadin
medication.
repeat CT head-Stable hypodensities within the right basal ganglia, left thalamus and left parietal/occipital lobes which are likely age-indeterminate infarctions or sequelae of chronic small vessel disease.
CTA head/neck-occlusion of the P2 segment of the left posterior cerebral artery. Diminutive right JORDI.
PMH: PA-fib, Chronic HFpEF/moderate to severe MR, HOCM/VT, Intramyocardial bridge:, h/o TIA, HTN, DLP, COPD, DREW, MDD, Nicotine, amphetamine use disorder, GERD
PSH: PPM, R SOREN, cholecystectomy, bilateral tubal ligation,
SH: Lives with boyfriend and daughter; current smoker (4-5 cigarettes per day), very rare alcohol use; Previously worked in a greenhouse, independent in ADLs
FH: Colon cancer
All: Morphine, amiodarone,
ROS: HEENT: Positive for visual symptoms with right-sided visual field defect described as 'cold' or 'snow-like' appearance, now improved but still not as clear as the left side. Patient reports having visual spots previously.
General: Well developed. In no acute distress.
Cardio: irregular rate and rhythm without murmur. Extremities are without cyanosis or edema.
Neuro:
Mental Status: Alert, oriented to person, place, and date. Normal attention and recall. Good fund of knowledge. Follows complex requests across the midline. Comprehension, naming, and repetition intact.
Cranial Nerves: Pupils are equally round and reactive to light. EOMs full. Visual roach full to confrontation. No ptosis. No nystagmus. V1-V3 intact to light touch and pinprick bilaterally, symmetric. Face symmetric. Normal hearing AU. The
palate elevated well. SCMs and traps 5/5. Tongue midline. No dysarthria.
Motor: Normal bulk and tone. No pronator or arm drift. Strength 5/5 throughout. No clonus.
Reflexes: 2+ throughout the upper extremities and 3+ knees. Negative Josefa's bilaterally.
Sensory: Reduced vibration at the toes
Coordination: No dysmetria or tremor.
Gait: deferred
Assessment and Plan:
I. Probable left MICROSOFT APPLICATION DEVELOPER/MCA territory stroke. L P2 occlusion. Likely etiology�cardioembolism.
II. PAF, subtherapeutic INR. Medication nonadherence
III. Nicotine/amphetamine use disorder.
-Continue Telemetry monitoring
-Continue warfarin with INR goal of 2.0�3.0
-LDL is at goal
-Addictive psychiatry consult
-DVT prophylaxis.
-Outpatient ophthalmology evaluation.
-Outpatient neurology follow-up
I personally reviewed all radiology and labs along with past medical records pertinent to current medical problems. Total time spent in patient care is 35 minutes.
Thank you for allowing us to participate in the care of this patient. Please do not hesitate to contact us with any questions or concerns
Objective Data
Vital Signs
Temp Pulse Resp BP Pulse Ox
36.9 C 65 12 102/52 98
08/30/25 11:00 08/30/25 11:00 08/30/25 11:00 08/30/25 11:00 08/30/25 11:00
Lab Results
08/30/25 08:25
08/30/25 08:25
PT 15.9 Sec (11.4-14.6) H 08/30/25 08:25
INR 1.24 08/30/25 08:25
Sodium 136 mmol/L (135-145) 08/30/25 08:25
Potassium 4.0 mmol/L (3.5-5.1) 08/30/25 08:25
BUN 14 mg/dl (7-17) 08/30/25 08:25
Glucose 125 mg/dl (70-99) H 08/30/25 08:25
Calcium 9.2 mg/dl (8.4-10.2) 08/30/25 08:25
LDL Cholesterol, Calc 59 mg/dl 08/29/25 05:58
Ur Buprenorphine Negative (Negative) 08/28/25 22:07
Patient Allergies
amiodarone Allergy (Verified 09/04/24 10:52)
Shortness of Breath
morphine Allergy (Verified 09/04/24 10:52)
Vomiting
Vital Signs and Labs
-
Vital Signs and Labs:
Vital Signs
Temp Pulse Resp BP Pulse Ox
36.9 C 65 12 102/52 98
08/30/25 11:00 08/30/25 11:00 08/30/25 11:00 08/30/25 11:00 08/30/25 11:00
Lab Results
08/30/25 08:25
08/30/25 08:25
PT 15.9 Sec (11.4-14.6) H 08/30/25 08:25
INR 1.24 08/30/25 08:25
Sodium 136 mmol/L (135-145) 08/30/25 08:25
Potassium 4.0 mmol/L (3.5-5.1) 08/30/25 08:25
BUN 14 mg/dl (7-17) 08/30/25 08:25
Glucose 125 mg/dl (70-99) H 08/30/25 08:25
Calcium 9.2 mg/dl (8.4-10.2) 08/30/25 08:25
LDL Cholesterol, Calc 59 mg/dl 08/29/25 05:58
Ur Buprenorphine Negative (Negative) 08/28/25 22:07
Medications
-
Medications:
Generic Name Dose Route Start Last Admin
Trade Name Freq PRN Reason Stop Dose Admin
Acetaminophen 650 mg 08/28/25 23:50
Acetaminophen 325 Mg Tablet PO 09/25/25 23:49
Q4HPRN PRN
mild pain/MARMOLEJO/temp> 100.4F
Aspirin 81 mg 08/29/25 08:00 08/30/25 09:05
Aspirin 81 Mg Chewable Tablet PO 09/26/25 07:59 81 mg
DAILY DIVYA Administration
Budesonide/Formoterol Fumarate 2 puff 08/29/25 08:00 08/30/25 07:32
Symbicort Inhaler 80/4.5 INH 09/26/25 07:59 2 puff
R BID DIVYA Administration
Protocol
Citalopram Hydrobromide 20 mg 08/29/25 08:00 08/30/25 09:05
Citalopram 20 Mg Tablet PO 09/26/25 07:59 20 mg
DAILY DIVYA Administration
Clopidogrel Bisulfate 75 mg 08/29/25 08:00 08/30/25 09:05
Clopidogrel 75 Mg Tablet PO 09/26/25 07:59 75 mg
DAILY DIVYA Administration
Dapagliflozin 10 mg 08/29/25 08:00 08/30/25 09:04
Dapagliflozin (Farxiga) 10 Mg Tablet PO 09/26/25 07:59 10 mg
DAILY DIVYA Administration
Enoxaparin Sodium 60 mg 08/30/25 09:00 08/30/25 09:05
Enoxaparin Sodium 60 Mg/0.6 Ml Syringe SC 09/27/25 08:59 60 mg
Q12H DIVYA Administration
Furosemide 80 mg 08/29/25 08:00 08/30/25 09:05
Furosemide 40 Mg Tablet PO 09/26/25 07:59 80 mg
DAILY DIVYA Administration
Metoprolol Tartrate 100 mg 08/29/25 08:00 08/30/25 09:04
Metoprolol 100 Mg Regular Release Tablet PO 09/26/25 07:59 100 mg
BID DIVYA Administration
Nicotine 14 mg 08/29/25 13:00 08/30/25 09:03
Nicotine 14 Mg Patch TRANSDERM 09/26/25 12:59 Not Given
DAILY DIVYA
Pantoprazole Sodium 40 mg 08/29/25 08:00 08/30/25 09:05
Pantoprazole 40 Mg Delayed Release Tablet PO 09/26/25 07:59 40 mg
DAILY DIVYA Administration
Ranolazine 500 mg 08/29/25 08:00 08/30/25 09:05
Ranolazine 500 Mg Extended Release Tablet PO 09/26/25 07:59 500 mg
DAILY DIVYA Administration
Rosuvastatin Calcium 40 mg 08/29/25 18:00 08/29/25 17:57
Rosuvastatin (Crestor) 20 Mg Tablet PO 09/26/25 17:59 40 mg
QPM DIVYA Administration
Sodium Chloride 0 flush 08/28/25 23:00 08/29/25 08:13
Sodium Chloride 0.9% (Flush) Syringe IV 09/25/25 22:59 1 flush
PER PROTOCOL DIVYA Administration
Verapamil HCl 360 mg 08/29/25 08:00 08/30/25 09:04
Verapamil 180 Mg (Extended Release) Tablet PO 09/26/25 07:59 360 mg
DAILY DIVYA Administration
Warfarin Sodium 4 mg 08/31/25 18:00
Warfarin 4 Mg Tablet PO 09/05/25 17:59
MoTu@1800 [facility]
Warfarin Sodium 2 mg 08/28/25 23:00 08/29/25 17:56
Warfarin 2 Mg Tablet PO 09/02/25 22:59 2 mg
SuWeThFrSa@1800 [facility] Administration
Home Medications
-
Home Medications
citalopram 20 mg tablet 20 mg PO DAILY Mental health 07/13/15
metoprolol tartrate 100 mg tablet 100 mg PO BID Blood pressure 11/25/19
omeprazole 20 mg capsule,delayed release 20 mg PO DAILY Gastrointestinal issue 11/25/19
furosemide 40 mg tablet 80 mg PO DAILY Fluid retention/Swelling 09/06/20
verapamil 180 mg tablet,extended release 360 mg PO DAILY Blood pressure 09/06/20
rosuvastatin 40 mg tablet 40 mg PO QPM High Cholesterol 09/08/23
ranolazine 500 mg tablet,extended release,12 hr 500 mg PO DAILY Heart Disease/Condition 09/04/24
budesonide-formoterol HFA 80 mcg-4.5 mcg/actuation aerosol inhaler (Symbicort) 2 puff inhalation R BID Lung/breathing issues #10.2 grams 09/06/24
dapagliflozin propanediol 10 mg tablet (Farxiga) 10 mg PO DAILY 08/28/25
warfarin 2 mg tablet (Jantoven) 2 mg PO DIRECTED Blood clot prevention/tx 08/28/25
warfarin 4 mg tablet (Jantoven) 4 mg PO MOTU Blood clot prevention/tx 08/28/25
--- NOTE | 2025-08-30 13:59 | W.PN.HOSP.TC ---
Today's Communication/Plan
-
Assessment / Plan
Assessment / Plan
General: No Apparent Distress, Comfortable and Conversant
HEENT: NormoCephalic, Moist mucous membranes, Atraumatic
Respiratory: Clear and Non Labored Respirations
Cardiac: S1/S2 and Regular Rhythm; No Rub or Gallop
GI: Soft, Non Tender, Non Distended and Normal Bowel Sounds
Musculoskeletal: No Edema, no deformity
Skin: Warm and dry
: NO [place]
Neuro: Awake, Alert, right upper extremity paresthesias, no gross motor deficits
Psych: Calm and cooperative
Ms. Park is a 70-year-old female with a medical history of HFpEF, hypertrophic obstructive cardiomyopathy, V. tach arrest (status post pacemaker/AICD), A-fib (on warfarin), nicotine abuse, and methamphetamine use (snorts) who presented with acute
onset right-sided paresthesias and peripheral vision loss in the right eye. She also reported a headache which has since resolved. CT brain showed multiple abnormalities, which are chronic but others could be small subacute infarcts. Her blood
pressure has remained stable. Labs were remarkable for mild hyponatremia of 134, mild hypokalemia of 3.2 and a subtherapeutic INR of 1.25. She reports having missed multiple doses of her home warfarin recently. She was admitted for further
evaluation and management of strokelike symptoms.
Suspected CVA:
- Likely due to subtherapeutic INR after patient missed multiple doses recently of her warfarin
- CT brain without contrast shows multiple abnormalities some of which are consistent with acute infarct
- Unable to obtain MRI due to noncompatible pacemaker
- CT angiography of the head shows occlusion of the P2a segment of the left HOME STAGING SPECIALIST which is likely the etiology of her symptoms
- Appreciate neurology guidance
- Continue warfarin with INR goal of 2.0-3.0, bridging with Lovenox until therapeutic, encourage adherence with medication regimen
- No indication for antiplatelet treatment
- Encourage avoidance of methamphetamine use
- PT/OT
A-fib:
- Currently rate controlled
- Continue beta-blockade with metoprolol tartrate 100 mg p.o. twice daily
- Continue anticoagulation with warfarin with INR goal 2.0-3.0, bridging with Lovenox until therapeutic
HFpEF:
- Chronic, currently compensated
- Continue beta-blockade with metoprolol tartrate 100 mg p.o. twice daily
- Afterload reduction with verapamil 360 mg p.o. daily
- Continue home Lasix 80 mg p.o. daily
Nicotine abuse:
- Advise smoking cessation
- Nicotine patch provided
Hypertrophic obstructive cardiomyopathy:
- AICD in place
- Continue beta-blockade with home metoprolol tartrate 100 mg p.o. twice daily
DVT prophylaxis: Warfarin, bridging with Lovenox
CODE STATUS: Full code
Total time spent on today's encounter was 52 minutes.
Anticipated Discharge: 24 - 48 hours
Subjective/Interval History
-
Date of Service: August 30, 2025
Patient was seen and examined at bedside this morning. Still experiencing right upper extremity paresthesias.
Objective Data
-
Labs:
Laboratory Results
08/30/25
08:25
WBC 8.6
Hgb 13.5
Hct 40.5
Plt Count 256
PT 15.9 H
INR 1.24
Sodium 136
Potassium 4.0
Chloride 104
Carbon Dioxide 26
BUN 14
Creatinine 0.9
Glucose 125 H
Calcium 9.2
Total Bilirubin 1.2
AST 19
ALT 17
Alkaline Phosphatase 99
Vital Signs:
Vital Signs
Temp Pulse Resp BP Pulse Ox
98.5 F 65 12 102/52 98
08/30/25 11:00 08/30/25 11:00 08/30/25 11:00 08/30/25 11:00 08/30/25 11:00
I&O
08/29/25 08/30/25 08/31/25
06:59 06:59 06:59
Intake Total 2099
Output Total 825 / 825
Balance 1275 / 1275
Review of Systems
-
History Source: Patient
All other systems: Reviewed and negative
Neuro: Reports Numbness (Right upper extremity)
Physical Exam
-
General: No Apparent Distress
[2025-08-30] MEDS: NSS 1000 IV (15:37)
[2025-08-30] MEDS: CRESTOR 40 MG PO (17:08)
[2025-08-30] MEDS: COUMADIN 2 MG PO (17:09)
[2025-08-30] MEDS: LOPRESSOR PO (19:46)
[2025-08-30] MEDS: TYLENOL 650 MG PO (19:57)
[2025-08-31] VITALS (7 sets, daily range): BP systolic 100–127; BP diastolic 59–69; PULSE 61; O2SAT 96; BMI 22.3
[2025-08-31] MEDS: SYMBICORT 80/4.5 MCG INHALER 2 PUFF INH ×2 (07:34→19:22)
--- NOTE | 2025-08-31 07:54 | W.PN.HOSP.TC ---
Today's Communication/Plan
-
continue warfarin with bridge- one time dose of warfarin 6mg today
monitor INR
outpatient follow-up with neurology and ophthalmology
Assessment / Plan
Assessment / Plan
Ms. Park is a 70-year-old female with a medical history of HFpEF, hypertrophic obstructive cardiomyopathy, V. tach arrest (status post pacemaker/AICD), A-fib (on warfarin), nicotine abuse, and methamphetamine use (snorts) who presented with acute
onset right-sided paresthesias and peripheral vision loss in the right eye. She also reported a headache which has since resolved. CT brain showed multiple abnormalities, which are chronic but others could be small subacute infarcts. Her blood
pressure has remained stable. Labs with subtherapeutic INR of 1.25. She reports having missed multiple doses of her home warfarin recently.
#Suspected CVA:
- Likely due to subtherapeutic INR after patient missed multiple doses recently of her warfarin
- CT brain without contrast shows multiple abnormalities some of which are consistent with acute infarct
- Unable to obtain MRI due to noncompatible pacemaker
- CT angiography of the head shows occlusion of the P2a segment of the left WHITE METAL CASTER which is likely the etiology of her symptoms
- Appreciate neurology guidance
- Continue warfarin with INR goal of 2.0-3.0, bridging with Lovenox until therapeutic, encourage adherence with medication regimen
- No indication for antiplatelet treatment
- Encourage avoidance of methamphetamine use
- PT/OT
-Outpatient follow-up with neurology and ophthalmology
#A-fib:
- Currently rate controlled
- Continue beta-blockade with metoprolol tartrate 100 mg p.o. twice daily
- Continue anticoagulation with warfarin with INR goal 2.0-3.0, bridging with Lovenox until therapeutic. will give 6mg warfarin today; inr tomorrow
#HFpEF:
- Chronic, currently compensated
- Continue beta-blockade with metoprolol tartrate 100 mg p.o. twice daily
- Afterload reduction with verapamil 360 mg p.o. daily
- Continue home Lasix 80 mg p.o. daily
#Nicotine abuse:
- Advise smoking cessation
- Nicotine patch provided
#Hypertrophic obstructive cardiomyopathy:
- AICD in place
- Continue beta-blockade with home metoprolol tartrate 100 mg p.o. twice daily
DVT prophylaxis: Warfarin, bridging with Lovenox
CODE STATUS: Full code
Anticipated Discharge: 24 - 48 hours
Subjective/Interval History
-
Date of Service: August 31, 2025
AFVSS. States that she continues to feel numbness and tingling on the right side of her body.
Objective Data
-
Labs:
Laboratory Results
08/31/25 08/31/25
06:00 08:40
WBC Pending
Hgb Pending
Hct Pending
Plt Count Pending
PT Pending
INR Pending
Sodium Pending
Potassium Pending
Chloride Pending
Carbon Dioxide Pending
BUN Pending
Creatinine Pending
Glucose Pending
Calcium Pending
Total Bilirubin Pending
AST Pending
ALT Pending
Alkaline Phosphatase Pending
Vital Signs:
Vital Signs
Temp Pulse Resp BP Pulse Ox
98.4 F 68 14 107/68 96
08/31/25 03:18 08/31/25 07:36 08/31/25 07:36 08/31/25 03:18 08/31/25 07:36
I&O
08/30/25 08/31/25 09/01/25
06:59 06:59 06:59
Intake Total 2099 / 2099
Output Total 825 / 825 400 / 400
Balance 1275 / 1275 -400 / -400
Review of Systems
-
History Source: Patient
All other systems: Reviewed and negative
Neuro: Reports Numbness (Right upper and lower extremity)
Physical Exam
-
General: Well Developed, Well Nourished and No Apparent Distress; Negative Slurred Speech
HEENT: Normocephalic and Atraumatic
Respiratory: Clear to Auscultation; Negative Wheezes or Rhonchi
Cardiac: Regular Rhythm and S1/S2; Negative Murmur
GI: Soft, Nontender, Nondistended and Normal Bowel Sounds
Musculoskeletal: No Cyanosis
Skin: Warm
Neuro: Awake, Alert, Oriented, No Motor Deficits, Nonfocal/Grossly Intact, Central Nerve's Intact and No Sensory Deficits; Negative Tremors or Facial Droop
Psych: Calm
Data Reviewed
-
CT Scan: Report Reviewed by me, Discussed with Physician and Discussed with Patient
Labs: Labs Reviewed by me, Discussed with Physician and Discussed with Patient
[2025-08-31] MEDS: FARXIGA 10 MG PO (08:40)
[2025-08-31] MEDS: RANEXA EXTENDED RELEASE 500 MG PO (08:40)
[2025-08-31] MEDS: CELEXA 20 MG PO (08:40)
[2025-08-31] MEDS: LOPRESSOR 100 MG PO ×2 (08:40→20:23)
[2025-08-31] MEDS: LOVENOX 60 MG SC ×2 (08:40→20:23)
[2025-08-31] MEDS: LASIX 80 MG PO (08:40)
[2025-08-31] MEDS: CALAN EXTENDED RELEASE 360 MG PO (08:40)
[2025-08-31] MEDS: PROTONIX 40 MG PO (08:41)
[2025-08-31] MEDS: NICODERM TRANSDERMAL TRANSDERM (08:43)
[2025-08-31 08:45] LABS: Hematocrit 41.0 % (37.0-47.0); Hemoglobin 13.1 g/dL (12.0-16.0); Mean Corp Hgb Conc. 32.0 g/dL (33.0-37.0); Mean Corpuscular Volume 92.1 fL (81.0-99.0); Nucleated Red Blood Cells % 0 %; Platelet Count 253 10^3/uL (130-400); Red Cell Dist. Width 13.8 % (11.5-14.5)
[2025-08-31 08:53] LABS: INR 1.52; PT 18.6 Sec (11.4-14.6)
[2025-08-31 09:28] LABS: ALT (SGPT) 16 U/L (0-35); AST (SGOT) 17 U/L (14-36); Albumin 3.3 g/dl (3.5-5.0); Alkaline Phosphatase 95 U/L (38-126); Blood Urea Nitrogen 18 mg/dl (7-17); Calcium 9.0 mg/dl (8.4-10.2); Carbon Dioxide 28 mmol/L (22-30); Chloride 106 mmol/L (98-107); Estimated Creatinine Clearance 38 ml/min; Glucose 108 mg/dl (70-99); Potassium 3.9 mmol/L (3.5-5.1); Sodium 135 mmol/L (135-145); Total Protein 5.6 g/dl (6.3-8.2); eGFR 49.00
[2025-08-31] MEDS: COUMADIN 6 MG PO (17:13)
[2025-08-31] MEDS: CRESTOR 40 MG PO (17:14)
--- NOTE | 2025-08-31 17:41 | CM ---
Reviewed chart. Met with pt. No needs recommended by PT. Monitoring warfarin
Plan: Possible DC tomorrow to to Dtr home NO needs
[2025-08-31] MEDS: NICODERM TRANSDERMAL 14 MG TRANSDERM (22:08)
[2025-09-01] VITALS (9 sets, daily range): BP systolic 80–115; BP diastolic 49–64; PULSE 62–65; BMI 22.4
[2025-09-01] MEDS: SYMBICORT 80/4.5 MCG INHALER 2 PUFF INH ×2 (07:28→19:13)
[2025-09-01 08:00] LABS: Hematocrit 39.7 % (37.0-47.0); Hemoglobin 13.0 g/dL (12.0-16.0); Mean Corp Hgb Conc. 32.7 g/dL (33.0-37.0); Mean Corpuscular Volume 89.8 fL (81.0-99.0); Platelet Count 261 10^3/uL (130-400); Red Cell Dist. Width 13.6 % (11.5-14.5)
[2025-09-01 08:05] LABS: INR 1.72; PT 20.3 Sec (11.4-14.6)
[2025-09-01] MEDS: CELEXA 20 MG PO (08:05)
[2025-09-01] MEDS: LASIX 80 MG PO (08:05)
[2025-09-01] MEDS: PROTONIX 40 MG PO (08:05)
[2025-09-01] MEDS: CALAN EXTENDED RELEASE 360 MG PO (08:05)
[2025-09-01] MEDS: RANEXA EXTENDED RELEASE 500 MG PO (08:05)
[2025-09-01] MEDS: FARXIGA 10 MG PO (08:05)
[2025-09-01] MEDS: LOVENOX 60 MG SC ×2 (08:06→19:48)
[2025-09-01] MEDS: LOPRESSOR 100 MG PO (08:06)
[2025-09-01] MEDS: NICODERM TRANSDERMAL 14 MG TRANSDERM (08:06)
[2025-09-01 08:26] LABS: Blood Urea Nitrogen 18 mg/dl (7-17); Calcium 9.4 mg/dl (8.4-10.2); Carbon Dioxide 25 mmol/L (22-30); Chloride 105 mmol/L (98-107); Estimated Creatinine Clearance 42 ml/min; Glucose 142 mg/dl (70-99); Potassium 3.5 mmol/L (3.5-5.1); Sodium 134 mmol/L (135-145); eGFR 54.39
--- NOTE | 2025-09-01 10:24 | CM ---
Met with pt bedside. PT rec a walker for safe ambulation.
Plan: possible DC to home with walker. No other needs identified
--- NOTE | 2025-09-01 11:11 | W.PN.HOSP.TC ---
Addendum entered and electronically signed by Rikki Hernandez DO 09/02/25 14:04:
CDI: Rise in creatinine only, likely with CKD stage II with some baseline fluctuation.
Original Note:
Today's Communication/Plan
-
Warfarin 5 mg this evening
Repeat INR tomorrow
Monitor neurologic status
OOB as tolerated
Assessment / Plan
Assessment / Plan
#Suspected CVA
#Subtherapeutic INR
#RUE paresthesia
- Likely cardioembolic in the context of subtherapeutic INR due to noncompliance with warfarin
- CT brain without contrast shows multiple abnormalities some of which are consistent with acute infarct
- CT angiography of the head shows occlusion of the P2a segment of the left RAIL SWITCH OPERATOR which is likely the etiology
- Was unable to have MRI brain without contrast due to noncompatible PPM/AICD
- Evaluated by neurology, no indication for antiplatelet therapy or statin therapy
- Remains on Lovenox 1 mg/kg twice daily as bridge to warfarin (INR goal 2-3)
- Order additional warfarin 5 mg this evening, repeat INR tomorrow
- Continue with neurochecks and NIHSS
#Atrial fibrillation
- Currently rate controlled; Home regimen includes metoprolol tartrate 100 mg BID and warfarin for AC
- No known history of electrophysiologic interventions such as ablation or DCCV's
- Suspect this is associated with her history of HOCM
- Remains on Lovenox bridge to warfarin as above
- Continue on telemetry
#HFpEF
#Hypertrophic obstructive cardiomyopathy
#History of cardiac arrest s/p AICD
- Chronic, currently compensated
- Home regimen includes metoprolol tartrate 100 mg BID, verapamil 360 mg QD, Lasix 80 mg QD
- Rate reduction with due AVN blockade has allow patient to tolerate Lasix without compromising preload
- Continue to monitor volume status, I's and O's, weights
- Caution with hypovolemia/reduced preload in HOCM
#Nicotine abuse
#Methamphetamine abuse
#Cannabis use
-Advise smoking cessation, of all kinds
-Nicotine patch provided
Diet: Cholesterol-lowering
DVT prophylaxis: Warfarin, bridging with Lovenox
CODE STATUS: Full code
Disposition: Home when medically stable
Anticipated Discharge: Within 24 hours
Subjective/Interval History
-
Date of Service: September 01, 2025
Seen and examined at the bedside. No acute events reported overnight. AFVSS this morning
Patient states she still has some RUE paresthesias that is not much better than yesterday. Denies any other new complaints
INR remains subtherapeutic at 1.72 today. Denies any bleeding or medical complaints
Objective Data
-
Labs:
Laboratory Results
09/01/25
07:35
WBC 7.8
Hgb 13.0
Hct 39.7
Plt Count 261
PT 20.3 H
INR 1.72
Sodium 134 L
Potassium 3.5
Chloride 105
Carbon Dioxide 25
BUN 18 H
Creatinine 1.1 H
Glucose 142 H
Calcium 9.4
Vital Signs:
Vital Signs
Temp Pulse Resp BP Pulse Ox
97.6 F 61 16 115/60 99
09/01/25 08:30 09/01/25 08:30 09/01/25 08:30 09/01/25 08:30 09/01/25 08:30
I&O
08/31/25 09/01/25 09/02/25
06:59 06:59 06:59
Intake Total 120 / 120
Output Total 400 / 400
Balance -400 / -400 120 / 120
Review of Systems
-
History Source: Patient
All other systems: Reviewed and negative
Physical Exam
-
General: Well Developed, No Apparent Distress and Appears Chronically Ill
HEENT: Normocephalic, Atraumatic, Moist Mucous Membranes and Anicteric
Respiratory: Clear to Auscultation and Non Labored Respirations; Negative Accessory Resp Muscle Use
Cardiac: Regular Rhythm and S1/S2; Negative Murmur, Rub or Gallop
GI: Soft, Nontender, Nondistended and Normal Bowel Sounds
Musculoskeletal: No Clubbing, No Cyanosis and No Edema
Skin: Warm and Dry; Negative Rash
Neuro: AO x 3, Central Nerve's Intact and Other (MMS intact x 4, reduced gross sensation to RUE); Negative Tremors
Psych: Calm
Data Reviewed
-
Labs: Labs Reviewed by me, Discussed with Nurse and Discussed with Patient
[2025-09-01] MEDS: NSS 500 IV (13:06)
[2025-09-01] MEDS: NSS 250 IV (13:09)
--- NOTE | 2025-09-01 15:03 | PTCARENOTE ---
Pt was hypotensive at 87/52, MD made aware and a 500 bolus was ordered. Pt was symptomatic with weakness and dizziness. BP after bolus was 98/61. MD made aware and an additional 250 bolus was ordered.
[2025-09-01] MEDS: COUMADIN 5 MG PO (17:03)
[2025-09-01] MEDS: CRESTOR 40 MG PO (17:04)
[2025-09-01] MEDS: LOPRESSOR PO (19:47)
[2025-09-01] MEDS: MELATONIN 5 MG PO (21:45)
[2025-09-02 03:16] VITALS: BP 96/50
[2025-09-02 06:00] VITALS: BMI 22.2
[2025-09-02 07:30] VITALS: BP 111/66; BP 113/72; BP 121/67; PULSE 63; PULSE 66; PULSE 71
--- NOTE | 2025-09-02 07:34 | W.PN.HOSP.TC ---
Today's Communication/Plan
-
dc today
Continue warfarin
outpatient PT
Assessment / Plan
Assessment / Plan
#Suspected CVA
#Subtherapeutic INR
#RUE paresthesia
- Likely cardioembolic in the context of subtherapeutic INR due to noncompliance with warfarin
- CT brain without contrast shows multiple abnormalities some of which are consistent with acute infarct
- CT angiography of the head shows occlusion of the P2a segment of the left LOBSTER FISHERMAN which is likely the etiology
- Was unable to have MRI brain without contrast due to noncompatible PPM/AICD
- Evaluated by neurology, no indication for antiplatelet therapy or statin therapy
- Lovenox 1 mg/kg was used as bridge to warfarin (INR goal 2-3); today INR is 2.5;
- continue home warfarin dose 4mg on sun and sun, 2mg for other days
#Atrial fibrillation
- Currently rate controlled; Home regimen includes metoprolol tartrate 100 mg BID and warfarin for AC
- No known history of electrophysiologic interventions such as ablation or DCCV's
- Suspect this is associated with her history of HOCM
- on warfarin
- Continue on telemetry
#HFpEF
#Hypertrophic obstructive cardiomyopathy
#History of cardiac arrest s/p AICD
- Chronic, currently compensated
- Home regimen includes metoprolol tartrate 100 mg BID, verapamil 360 mg QD, Lasix 80 mg QD
- Rate reduction with due AVN blockade has allow patient to tolerate Lasix without compromising preload
- Continue to monitor volume status, I's and O's, weights
- Caution with hypovolemia/reduced preload in HOCM
#Nicotine abuse
#Methamphetamine abuse
#Cannabis use
-Advise smoking cessation, of all kinds
-Nicotine patch provided
Diet: Cholesterol-lowering
DVT prophylaxis: Warfarin
CODE STATUS: Full code
Disposition: Home with outpatient thrapy
Anticipated Discharge: Today
Subjective/Interval History
-
Date of Service: September 02, 2025
AFVSS. Offers no new complaints. States that she is feeling good.
Objective Data
-
Labs:
Laboratory Results
09/02/25
06:53
WBC Pending
Hgb Pending
Hct Pending
Plt Count Pending
PT Pending
INR Pending
Vital Signs:
Vital Signs
Temp Pulse Resp BP Pulse Ox
97.8 F 62 17 96/50 93
09/02/25 03:16 09/02/25 03:16 09/02/25 03:16 09/02/25 03:16 09/02/25 03:16
I&O
09/01/25 09/02/25 09/03/25
06:59 06:59 06:59
Intake Total 120 / 120 1440 / 1440
Balance 120 / 120 1440 / 1440
Review of Systems
-
History Source: Patient
All other systems: Reviewed and negative
Physical Exam
-
General: Well Developed, No Apparent Distress and Appears Chronically Ill
HEENT: Normocephalic, Atraumatic, Moist Mucous Membranes and Anicteric
Respiratory: Clear to Auscultation and Non Labored Respirations; Negative Accessory Resp Muscle Use
Cardiac: Regular Rhythm and S1/S2; Negative Murmur, Rub or Gallop
GI: Soft, Nontender, Nondistended and Normal Bowel Sounds
Musculoskeletal: No Clubbing, No Cyanosis and No Edema
Skin: Warm and Dry; Negative Rash
Neuro: AO x 3, Central Nerve's Intact and Other (MMS intact x 4, reduced gross sensation to RUE); Negative Tremors
Psych: Calm
Data Reviewed
-
Labs: Labs Reviewed by me, Discussed with Physician and Discussed with Patient
[2025-09-02 07:37] LABS: Hematocrit 39.1 % (37.0-47.0); Hemoglobin 12.7 g/dL (12.0-16.0); Mean Corp Hgb Conc. 32.5 g/dL (33.0-37.0); Mean Corpuscular Volume 92.4 fL (81.0-99.0); Nucleated Red Blood Cells % 0 %; Platelet Count 262 10^3/uL (130-400); Red Cell Dist. Width 13.6 % (11.5-14.5)
[2025-09-02 07:38] LABS: INR 2.53; PT 27.6 Sec (11.4-14.6)
[2025-09-02 08:16] VITALS: BP 111/66; BP 113/72; BP 121/67; PULSE 63; PULSE 66; PULSE 71
[2025-09-02] MEDS: SYMBICORT 80/4.5 MCG INHALER 2 PUFF INH (08:21)
[2025-09-02] MEDS: PROTONIX 40 MG PO (08:38)
[2025-09-02] MEDS: CALAN EXTENDED RELEASE 360 MG PO (08:38)
[2025-09-02] MEDS: FARXIGA 10 MG PO (08:39)
[2025-09-02] MEDS: RANEXA EXTENDED RELEASE 500 MG PO (08:39)
[2025-09-02] MEDS: CELEXA 20 MG PO (08:39)
[2025-09-02] MEDS: LOPRESSOR 100 MG PO (08:39)
[2025-09-02] MEDS: NICODERM TRANSDERMAL TRANSDERM (08:42)
--- NOTE | 2025-09-02 11:21 | CM ---
Met with pt bedside. IMM completed and placed on chart.
She expects to be discharged today. Will go home with her boyfriend when ready.
PT rec o/p PT. Requested script from DR. Hernandez. Resources provided to pt.
Script obtained for CHRISTINA Fernando
Plan: possible DC home with O/P PT
[2025-09-02 11:22] VITALS: BP 90/60
--- NOTE | 2025-09-02 11:28 | W.DCSUMMARY ---
Documented by User: Sina Woodruff MD, Resident 09/02/25 12:09
Discharge Summary
Discharge Data
Date of Admission: 08/28/25
Date of Discharge: 09/02/25
-
Pending Results: No
Hospital Course
Discharging Physician : Sina Woodruff MD ; Rikki Hernandez DO
Disposition : Home
Primary care physician : Josep Storey
Principal Discharge diagnosis : Acute CVA (stroke, symptomatically presenting as numbness and tingling to your right upper extremity)
Chronic Discharge diagnosis : Subtherapeutic INR
Hypotension
Medication noncompliance
Substance abuse
Hospital Course : 70-year-old female presented with c/o tingling on the right side of her body with occasional peripheral vision loss in her right eye along with feeling more confused having difficulty concentrating on a conversation which began
08/27/2025.
She reports she thought her vision had cleared but her other eye felt cloudy. She was unsure whether she might of mixup medication with her boyfriend's stating she might of taken his blood pressure and cholesterol medication instead of hers. She
is using methamphetamine snorting twice weekly with last use she thinks 4 days ago. She was unsure when she took Coumadin last week, did miss doses Sunday possibly 08/27. She is on Coumadin for history of A-fib however
INR was subtherapeutic at 1.25 on admission. She denied headache, fever, chills, chest pain, palpitations, cough, shortness of breath, abdominal pain, nausea, vomiting, diarrhea, urinary symptoms. CT swas performed with results as below. Labs also
showed mild hypokalemia which was repleted. Given that she has a AICD which is not MRI conditional imaging was limited.
Neurology was also consulted and a CAT scan was repeated after 24 hours with results as below. LDL was at goal. There was no indication for antiplatelet therapy given that INR was subtherapeutic Lovenox was used as a bridging to warfarin. On the
day of discharge patient's INR was 2.5 with a goal of 2�3. Patient did receive couple of days of 5 mg warfarin since INR was improving 2 hours ago very slowly. She was discharged on the same warfarin dose as prior to admission. Encouraged her to
remain compliant with the medication. Her symptoms included right-sided weakness resolved in the hospital. Physical therapy also evaluated the patient and recommended outpatient therapy. A prescription was provided to the patient at the time of
discharge
She was also provided to the patient for a PT/INR in 3 days and results to the PCP.
On the day of discharge patient was stable with no deficits.
Important imaging findings : CT Head W/o Iv Contrast 08/28/25
No acute intracranial hemorrhage.
Small area of decreased attenuation in the left posterior parietal-occipital deep white matter which although could represent a new small old infarct in the interval since prior study, small subacute infarct or less likely focus of deep white matter
infection/lesion cannot be entirely excluded
CT Head & Neck Angio W/wo IV 08/29/25
CT Brain: No evidence of acute intracranial hemorrhage. There are hypodensities within the right basal ganglia, left thalamus and left parietal/occipital lobes which are similar to recent prior and which are likely age-indeterminate infarctions.
Further evaluation with MRI may be considered if there is concern for acute ischemia.
CTA Head: There is occlusion of the P2a segment of the left posterior cerebral artery. Diminutive right anterior cerebral artery.
CTA Neck: No significant arterial stenosis.
CT Head W/o Iv Contrast 08/30/25
No acute intracranial hemorrhage noted.
Stable hypodensities within the right basal ganglia, left thalamus and left parietal/occipital lobes which are likely age-indeterminate infarctions or sequelae of chronic small vessel disease..
Discharge Plan
-
Patient Disposition: Home (Routine Discharge)
Discharge Diagnosis/Procedures: Acute CVA (stroke, symptomatically presenting as numbness and tingling to your right upper extremity)
Subtherapeutic INR
Hypotension
Medication noncompliance
Substance abuse
Condition: Fair
Diet: Low Cholesterol and Other diet
Additional Diets: See handout on foods to avoid while taking warfarin
Activity: As tolerated
Driving Restrictions: Not until seen by your Dr
Bathing Restrictions: None
Blood Work: Have INR checked in 3 days
Routine CBC and BMP with family doctor
Other Services: PT and OT
Specialty Instructions: Weigh Daily- Call MD for wt gain/loss 3 lbs overnight/5 lbs in 1 week
Activity Restrictions/Additional Instructions:
Follow-up with your family doctor within 1 week.
Follow-up with your certified medical biller within 1 week, referral provided if new certified medical biller is needed
Instructions: Warfarin and your diet
Referrals:
Gordy Kearns MD [Active, Cardiology] - in less than 1 week
Referral Note: If new certified medical biller needed
Josep Storey MD [Family Provider, [facility]] - in less than 1 week
Additional Discharge Medication Instructions: Resume Lasix on 09/03/2025
Use nicotine patches for smoking cessation
Hand written Script for therapy and INR provided with these papers
Prescriptions:
New
nicotine 14 mg/24 hr Patch 24 Hour
14 mg transdermal DAILY Qty: 28 0RF
Continued
citalopram 20 MG tablet
20 mg PO DAILY
metoprolol tartrate 100 MG tablet
100 mg PO BID
omeprazole 20 MG capsule,delayed release(DR/EC)
20 mg PO DAILY
verapamil 180 MG tablet extended release
360 mg PO DAILY
rosuvastatin 40 mg tablet
40 mg PO QPM
ranolazine 500 mg Tablet Extended Release 12 Hr
500 mg PO DAILY
Patient Comments:
09/04/24-patient stated she only takes one cause she cant pee on it
budesonide-formoterol [Symbicort] 80-4.5 mcg/actuation Hfa Aerosol Inhaler
2 puff inhalation R BID Qty: 10.2 0RF
dapagliflozin propanediol [Farxiga] 10 mg tablet
10 mg PO DAILY
warfarin [Jantoven] 4 mg tablet
4 mg PO MOTU
warfarin [Jantoven] 2 mg tablet
2 mg PO DIRECTED
Rx Instructions:
takes 2 mg SaSUWETHFR
Held
furosemide 40 MG tablet
80 mg PO DAILY
Hold Instructions: Resume taking Lasix on 09/03/2025
Discharge Orders:
Discharge Patient (As Directed); Ordered 09/02/25
Ordered By: Sina Woodruff
Discharge Date and Time
Print Language: KYRGYZ

Documented by User: Rikki Hernandez DO 09/02/25 12:45
Discharge Summary
Discharge Data
Date of Admission: 09/01/25
Date of Discharge: 09/02/25
Total time spent discharging patient (in min): 33
Discharge Plan
-
Patient Disposition: Home (Routine Discharge)
Discharge Diagnosis/Procedures: Acute CVA (stroke, symptomatically presenting as numbness and tingling to your right upper extremity)
Subtherapeutic INR
Hypotension
Medication noncompliance
Substance abuse
Condition: Fair
Diet: Low Cholesterol and Other diet
Additional Diets: See handout on foods to avoid while taking warfarin
Activity: As tolerated
Driving Restrictions: Not until seen by your Dr
Bathing Restrictions: None
Blood Work: Have INR checked in 3 days
Routine CBC and BMP with family doctor
Other Services: PT and OT
Specialty Instructions: Weigh Daily- Call MD for wt gain/loss 3 lbs overnight/5 lbs in 1 week
Activity Restrictions/Additional Instructions:
Follow-up with your family doctor within 1 week.
Follow-up with your certified medical biller within 1 week, referral provided if new certified medical biller is needed
Instructions: Warfarin and your diet
Referrals:
Gordy Kearns MD [Active, Cardiology] - in less than 1 week
Referral Note: If new certified medical biller needed
Josep Storey MD [Family Provider, Family Practice] - in less than 1 week
Additional Discharge Medication Instructions: Resume Lasix on 09/03/2025
Use nicotine patches for smoking cessation
Hand written Script for therapy and INR provided with these papers
Prescriptions:
New
nicotine 14 mg/24 hr Patch 24 Hour
14 mg transdermal DAILY Qty: 28 0RF
Continued
citalopram 20 MG tablet
20 mg PO DAILY
metoprolol tartrate 100 MG tablet
100 mg PO BID
omeprazole 20 MG capsule,delayed release(DR/EC)
20 mg PO DAILY
verapamil 180 MG tablet extended release
360 mg PO DAILY
rosuvastatin 40 mg tablet
40 mg PO QPM
ranolazine 500 mg Tablet Extended Release 12 Hr
500 mg PO DAILY
Patient Comments:
09/04/24-patient stated she only takes one cause she cant pee on it
budesonide-formoterol [Symbicort] 80-4.5 mcg/actuation Hfa Aerosol Inhaler
2 puff inhalation R BID Qty: 10.2 0RF
dapagliflozin propanediol [Farxiga] 10 mg tablet
10 mg PO DAILY
warfarin [Jantoven] 4 mg tablet
4 mg PO MOTU
warfarin [Jantoven] 2 mg tablet
2 mg PO DIRECTED
Rx Instructions:
takes 2 mg SaSUWETHFR
Held
furosemide 40 MG tablet
80 mg PO DAILY
Hold Instructions: Resume taking Lasix on 09/03/2025
Discharge Orders:
Discharge Patient (As Directed); Ordered 09/02/25
Ordered By: Sina Woodruff
Discharge Date and Time
Print Language: KYRGYZ
[2025-09-02 13:04] VITALS: BP 101/53
--- NOTE | 2025-09-02 13:06 | PN.CDI ---
CDI
- -
CDI:
Physician Documentation Request
Admit Date: 09/01/25 08:23
Dear Doctor Ranjan,
Clinical Indicators:
Patient admitted with acute CVA; PMH includes HOCM.
Home medications include: Lasix 80 mg po daily
Cr/GFR trend:
08/30/25 08/31/25 09/01/25
08: 08:21 07:35
Creatinine 0.9 1.2 H 1.1 H
eGFR > 60.00 49.00 54.39
Please clarify which of the following accurately represents the patient's renal status:
NANNETTE
Rise in creatinine only
Other, please specify
Criteria for NANNETTE*
1 Increase in serum creatinine by > or = to 0.3 mg/dL (> or = to 26.5 micromol/L) within 48 hours, OR
2 Increase in serum creatinine to > or = to 1.5 times baseline, which is known or presumed to have occurred within 7 days, OR
3 Urine volume < 0.5 nL/kg/hour for six hours
Use of terms such as suspected, likely, concern for, or probable (associated with a specific diagnosis that is being evaluated, monitored, or treated as if it exists) are acceptable and can be coded in the inpatient setting, when documented at the
time of discharge.
Thank you,
YASMINE Stevens RN
CDI Specialist
available via tiger text
Please use your independent medical judgment in providing your response.
*Source: Kidney Disease: Improving Global Outcomes (KDIGO) 2012
[2025-09-02 15:30] VITALS: BP 104/58
== END 2025-09-02 16:09 | disposition home or self-care (01) | DRG 65 ==
LOC: 4 EAST ACU 08:23
PROVIDERS: Clinical Nurse Specialist Family Health; Emergency Medicine; Internal Medicine; ADMITTING PHYSICIAN Internal Medicine; ATTENDING PHYSICIAN Internal Medicine; CONSULT PHYSICIAN Psychiatry & Neurology Neurology; EMERGENCY PHYSICIAN Student in an Organized Health Care Education/Training Program; FAMILY PHYSICIAN Family Medicine
DX: I63.512 Cerebral infarction due to unspecified occlusion or stenosis of left middle cerebral artery (principal); I42.1 Obstructive hypertrophic cardiomyopathy; I50.32 Chronic diastolic (congestive) heart failure; I48.21 Permanent atrial fibrillation; I48.92 Unspecified atrial flutter; F15.10 Other stimulant abuse, uncomplicated; F17.210 Nicotine dependence, cigarettes, uncomplicated; Z80.0 Family history of malignant neoplasm of digestive organs; Z88.5 Allergy status to narcotic agent; Z95.810 Presence of automatic (implantable) cardiac defibrillator; Z79.01 Long term (current) use of anticoagulants; E78.00 Pure hypercholesterolemia, unspecified; E87.6 Hypokalemia; H54.61 Unqualified visual loss, right eye, normal vision left eye; I11.0 Hypertensive heart disease with heart failure; I25.10 Atherosclerotic heart disease of native coronary artery without angina pectoris; J44.9 Chronic obstructive pulmonary disease, unspecified; R79.1 Abnormal coagulation profile; Z79.51 Long term (current) use of inhaled steroids; Z79.84 Long term (current) use of oral hypoglycemic drugs; Z79.899 Other long term (current) drug therapy; Z86.73 Personal history of transient ischemic attack (TIA), and cerebral infarction without residual deficits; Z91.148 Patient's other noncompliance with medication regimen for other reason; K21.9 Gastro-esophageal reflux disease without esophagitis; F41.1 Generalized anxiety disorder
CPT/HCPCS: 70450; 70496; 70498; 80048; 80053; 80061; 80306; 80307; 81003; 81015; 85025; 85027; 85610; 87077; 87086; 87186; 93005; 94640; 97116; 97129; 97162; 97166; 99285; 99406; Q9967

== ENCOUNTER 2025-09-27 21:28 | Observation (INO) | payer MEDICARE, SELFPAY ==
[2025-09-27] VITALS (17 sets, daily range): BP systolic 77–93; BP diastolic 45–58; BMI 21.8; BMI 21.7
[2025-09-27 11:55] LABS: Glucose - Point of Care 150 mg/dl (70-99)
--- NOTE | 2025-09-27 12:22 | ED.GENMED ---
History of Present Illness
<DO Denise Kimball Filed: 10/01/25 01:37>
General
Chief Complaint: Overdose Unintentional
Source: patient and family
Time Seen by Provider: 09/27/25 12:07
History of Present Illness
History of Present Illness:
70-year-old female presents to the emergency room for evaluation because she inadvertently took her boyfriend's medications. She did not take her own medications. Her boyfriend takes several pills in the morning including metformin 1000 mg,
metoprolol 100 mg, tamsulosin 0.4 mg finasteride 5 mg, amlodipine 10 mg, rosuvastatin 10 mg, glipizide 5 mg, Eliquis 5 mg, lisinopril 40 mg, quetiapine 50 mg
Patient's been feeling tired since taking the pills. She denies any chest pain, shortness breath, nausea or vomiting
Past History
<DO Denise Kimball Filed: 10/01/25 01:37>
Past History
ED Past Medical History: Arrthythmia (Atrial flutter/fib, V. tach, V fib,), CAD, CHF, Hypercholesterolemia, [place], Psychiatric (major depression), Other (hiatal hernia), Other (pyelonephritis) and Other (Cardiomyopathy, heart heart valve problem,
Sudden cardiac )
ED Past Surgical History: Cardiac (Pacer/AICD), Cholecystectomy, Gynecological (tubal ligation), Orthopedic (R hip replacment) and Other (Cardiac ablation done in 2004 at 2006 at [facility], and a colonoscopy in 2006, abd hernia repair)
Social History
Tobacco: Smoker
Alcohol: None
Drug: None and Other
Personal: Partner
Living: alone
Employment: Not employed
Family History
Family History: Cancer (Mother ngozi duct, Brother colon)
Phy Exam
<DO Denise Kimball Filed: 10/01/25 01:37>
Physical Exam
Physical Exam:
General: Awake, Alert, Oriented X3. No acute distress.
Vitals: Mildly hypertensive on arrival
Head: Atraumatic
Eyes: Pupils equal, EOMI
Throat: Airway intact, no exudates
Neck: Trachea midline
Lungs: Clear and equal b/l
Heart: Regular rate, no murmurs
Abd: Soft, Nontender, No pulsatile mass
Neuro: Nonfocal
Skin: Warm, dry, no rash
Extremities: pulses equal b/l, no edema
Course
<Gerry Boyer, DO - Last Filed: 10/01/25 01:37>
Orders/Labs/Results
Orders:
Orders
09/27/25 Breakfast
Cholesterol Lowering
At Your Request: Full Participation
Cholesterol Lowering: Sodium, 2 Gram
09/27/25 12:18
0.9% Sodium Chloride 500 ml [Nss] 500 ml IV BOLUS
09/27/25 12:24
Electrocardiogram (*1) Urgent
Reason for Study: QTc Monitoring
EKG- Treatment ONCE
09/27/25 12:25
Basic Metabolic Panel Urgent
Complete Blood Count/With Diff Urgent
Prothrombin Time Urgent
09/27/25 16:22
0.9% Sodium Chloride 1000 ml [Nss] 1,000 ml IV BOLUS
09/27/25 16:25
Bedside Glucose- Treatment ONCE
09/27/25 21:11
Admit/Transfer Patient As Directed
Co-Sign Provider:
Level of Care: Observation services
Assign to:: Telemetry
Physician / Group: Laisha Feliciano
Diagnosis: accidental overdose
Reason for Telemetry: Arrhythmia
Date to Stop Telemetry: 09/30/25
Time to Stop Telemetry: 11:00
PRN Pain Medication Management As Directed
May give lesser potent ordered pain med per pt: Yes
preference::
Protocol:: Medication orders for pain may be administered in a
manner that supports deferring to patient preference
when the pt is:
- Requesting an ordered lesser potent pain medication.
Least to most potent pain medications are defined
as: acetaminophen < NSAID < tramadol < opioids
(morphine, oxycodone, hydromorphone).
- Requesting a lesser dose of the same medication IF
ORDERED.
- Requesting a less intrusive route of administration
if both routes are prescribed by the provider (PO <
IV).
09/27/25 21:13
Code Status As Directed
Resuscitation Status: Full Code
09/27/25 22:19
Warfarin [Coumadin] 2 mg PO SuWeThFrSa
09/27/25 22:19
Accucheck [Bedside Glucose Monitoring] As Directed
Frequency: Q6H
Activity As Directed
Activity Level: Ambulate
Intake/ Output As Directed
Frequency: Per unit guidelines
Patient Education As Directed
Type: CHF folder
Comment: give on admission. Document in Interdisciplinary Education record
Sleep Apnea Assessment by RN As Directed
Comment:
Physician Instructions:
Vital Signs As Directed
Frequency: Per unit guidelines
Weight As Directed
Frequency: Daily
Type of Scale: Standing Scale
Comment: Daily morning weight. If unable to stand, use balanced bed scale.
Weight As Directed
Frequency: Once
Type of Scale: Standing Scale
Comment: Upon Admission. If unable to stand, use balanced bed scale.
Weight As Directed
Frequency: Once
Comment: on admission
Pulse Ox/cont/shift [RESP] Routine
Quantity: 1
Special Instructions: Daily pulse oximetry at rest. If greater than 92% at rest also obtain pulse oximetry
while ambulating as tolerated.
Pulse Ox/spot Check [RESP] Routine
Quantity: 1
09/28/25 07:45
PT/INR [Prothrombin Time] IN AM
09/28/25 08:00
Citalopram [Celexa] 20 mg PO DAILY
Dapagliflozin [Farxiga] 10 mg PO DAILY
Furosemide [Lasix] 80 mg PO DAILY
Metoprolol [Lopressor] 100 mg PO BID
Pantoprazole [Protonix] 40 mg PO DAILY
Ranolazine Extended Release [Ranexa Extended Release] 500 mg PO DAILY
Verapamil Extended Release [Calan Extended Release] 360 mg PO DAILY
09/28/25 18:00
Rosuvastatin Calcium [Crestor] 40 mg PO QPM
Warfarin [Coumadin] 4 mg PO MoTu@1800
09/30/25 11:00
DC Protocol for Telemetry ONCE
Abnormal Lab Results
09/27/25 09/27/25 09/27/25
11:53 12:25 16:19
Lymphocytes % 20.2 L %
(20.5-51.1)
PT 29.6 H Sec
(11.4-14.6)
Carbon Dioxide 31 H mmol/L
(22-30)
BUN 19 H mg/dl
(7-17)
Creatinine 1.1 H mg/dL
(0.6-1.0)
Glucose 100 H mg/dl
(70-99)
POC Glucose 150 H mg/dl 114 H mg/dl
(70-99) (70-99)
09/27/25 12:25
09/27/25 12:25
Vital Signs
Initial and Last Documented VS:
Initial Vital Signs
Temp Pulse Resp BP Pulse Ox
98.2 F 64 16 77/51 97
09/27/25 11:49 09/27/25 11:49 09/27/25 11:49 09/27/25 11:49 09/27/25 11:49
Last Documented Vital Signs
Temp Pulse Resp BP Pulse Ox
98.4 F 60 16 90/56 97
09/29/25 15:35 09/29/25 15:35 09/29/25 15:35 09/29/25 15:35 09/29/25 15:35
<Deisy Boland MD - Last Filed: 09/29/25 19:46>
Orders/Labs/Results
Orders:
Orders
09/27/25 Breakfast
Cholesterol Lowering
At Your Request: Full Participation
Cholesterol Lowering: Sodium, 2 Gram
09/27/25 12:18
0.9% Sodium Chloride 500 ml [Nss] 500 ml IV BOLUS
09/27/25 12:24
Electrocardiogram (*1) Urgent
Reason for Study: QTc Monitoring
EKG- Treatment ONCE
09/27/25 12:25
Basic Metabolic Panel Urgent
Complete Blood Count/With Diff Urgent
Prothrombin Time Urgent
09/27/25 16:22
0.9% Sodium Chloride 1000 ml [Nss] 1,000 ml IV BOLUS
09/27/25 16:25
Bedside Glucose- Treatment ONCE
09/27/25 21:11
Admit/Transfer Patient As Directed
Co-Sign Provider:
Level of Care: Observation services
Assign to:: Telemetry
Physician / Group: Laisha Feliciano
Diagnosis: accidental overdose
Reason for Telemetry: Arrhythmia
Date to Stop Telemetry: 09/30/25
Time to Stop Telemetry: 11:00
PRN Pain Medication Management As Directed
May give lesser potent ordered pain med per pt: Yes
preference::
Protocol:: Medication orders for pain may be administered in a
manner that supports deferring to patient preference
when the pt is:
- Requesting an ordered lesser potent pain medication.
Least to most potent pain medications are defined
as: acetaminophen < NSAID < tramadol < opioids
(morphine, oxycodone, hydromorphone).
- Requesting a lesser dose of the same medication IF
ORDERED.
- Requesting a less intrusive route of administration
if both routes are prescribed by the provider (PO <
IV).
09/27/25 21:13
Code Status As Directed
Resuscitation Status: Full Code
09/27/25 22:19
Warfarin [Coumadin] 2 mg PO SuWeThFrSa
09/27/25 22:19
Accucheck [Bedside Glucose Monitoring] As Directed
Frequency: Q6H
Activity As Directed
Activity Level: Ambulate
Intake/ Output As Directed
Frequency: Per unit guidelines
Patient Education As Directed
Type: CHF folder
Comment: give on admission. Document in Interdisciplinary Education record
Sleep Apnea Assessment by RN As Directed
Comment:
Physician Instructions:
Vital Signs As Directed
Frequency: Per unit guidelines
Weight As Directed
Frequency: Daily
Type of Scale: Standing Scale
Comment: Daily morning weight. If unable to stand, use balanced bed scale.
Weight As Directed
Frequency: Once
Type of Scale: Standing Scale
Comment: Upon Admission. If unable to stand, use balanced bed scale.
Weight As Directed
Frequency: Once
Comment: on admission
Pulse Ox/cont/shift [RESP] Routine
Quantity: 1
Special Instructions: Daily pulse oximetry at rest. If greater than 92% at rest also obtain pulse oximetry
while ambulating as tolerated.
Pulse Ox/spot Check [RESP] Routine
Quantity: 1
09/28/25 07:45
PT/INR [Prothrombin Time] IN AM
09/28/25 08:00
Citalopram [Celexa] 20 mg PO DAILY
Dapagliflozin [Farxiga] 10 mg PO DAILY
Furosemide [Lasix] 80 mg PO DAILY
Metoprolol [Lopressor] 100 mg PO BID
Pantoprazole [Protonix] 40 mg PO DAILY
Ranolazine Extended Release [Ranexa Extended Release] 500 mg PO DAILY
Verapamil Extended Release [Calan Extended Release] 360 mg PO DAILY
09/28/25 18:00
Rosuvastatin Calcium [Crestor] 40 mg PO QPM
Warfarin [Coumadin] 4 mg PO MoTu@1800
09/30/25 11:00
DC Protocol for Telemetry ONCE
Abnormal Lab Results
09/27/25 09/27/25 09/27/25
11:53 12:25 16:19
Lymphocytes % 20.2 L %
(20.5-51.1)
PT 29.6 H Sec
(11.4-14.6)
Carbon Dioxide 31 H mmol/L
(22-30)
BUN 19 H mg/dl
(7-17)
Creatinine 1.1 H mg/dL
(0.6-1.0)
Glucose 100 H mg/dl
(70-99)
POC Glucose 150 H mg/dl 114 H mg/dl
(70-99) (70-99)
09/27/25 12:25
09/27/25 12:25
Vital Signs
Initial and Last Documented VS:
Initial Vital Signs
Temp Pulse Resp BP Pulse Ox
98.2 F 64 16 77/51 97
09/27/25 11:49 09/27/25 11:49 09/27/25 11:49 09/27/25 11:49 09/27/25 11:49
Last Documented Vital Signs
Temp Pulse Resp BP Pulse Ox
98.4 F 60 16 90/56 97
09/29/25 15:35 09/29/25 15:35 09/29/25 15:35 09/29/25 15:35 09/29/25 15:35
acacia;Gerry Boyer DO - Last Filed: 10/01/25 01:37>
MDM/Problems Addressed
Differential Diagnosis Includes:
Hypotension accidental overdose, dehydration, anemia, electrolyte abnormality
MDM/Problems Addressed:
Patient presents with mild hypotension after taking medication. The list of medications is extensive including anticoagulants, antihypertensive, diabetic medications. During a period of observation the patient's glucose was stable. Blood pressure
was on the low normal side. Patient signed out to Dr. Olivas as she is undergoing a period of observation. Final disposition will be determined based upon how the patient does
<Gerry Boyer DO - Last Filed: 10/01/25 01:37>
*Pulse Oximetry
SaO2: 99
Oxygen Mode of Delivery: Room air
Patient hypoxic: no
*EKG
Interpreted by ED Provider?: Yes
Heart Rate: 60
Rate: normal
Rhythm: ventricular paced
*[employer] Interpretation
Rate: normal
Interpretation: abnormal
Rhythm: ventricular paced
*Critical Care Note
Total Time (30-74mins, 75-104mins- exclusive of procedures): Not Applicable
<Deisy Boland MD - Last Filed: 09/29/25 19:46>
Update Note
Update Note:
1602: On reassessment patient feels slightly groggy. Repeat blood pressure was slightly low. Will give p.o. fluids and recheck Accu-Chek given patient did take metformin/glipizide.
Accu-Chek normal. Patient tolerating p.o. though still feels slightly off. Repeat blood pressure in the low 80s. Will give additional IV fluids.
1745: Repeat blood pressure slightly low. Patient ambulated though still feels slightly off balance. After shared decision making given patient's labile blood pressures and the fact the patient does not feel completely back to baseline will admit
for observation
ED Attending Note
<Gerry Boyer DO - Last Filed: 10/01/25 01:37>
-
Portions of this chart may have been created with voice recognition software.� Occasional wrong word or��sound alike� substitutions may have occurred due to the inherent limitations of voice recognition software.
Discharge Plan
Departure
Patient Disposition: Admit
Date of Disposition: 09/27/25
Time of Disposition: 20:03
Presentation/result/management discussed w/ accepting MD/DO: Hospitalist
Discharge Problem:
Accidental overdose
Interventions
Interventions:
*Risk Screen - Suicide Last Done: 09/27/25 11:49
*General Assessment Last Done: 09/27/25 12:19
*Neglect/Abuse Screening Last Done: 09/27/25 11:49
*ED- Fall Risk Assessment Last Done: 09/27/25 12:19
*ED COVID-19 Vaccine History Last Done: 09/27/25 22:32
*ED Influenza Vaccine History Last Done: 09/27/25 12:19
*Nursing Disposition Last Done: 09/27/25 23:07
ED- Cardiac Assessment Last Done: 09/27/25 12:33
ED- Neurological Assessment Last Done: 09/27/25 12:33
ED-Psychological Assessment Last Done: 09/27/25 12:33
ED- Pulmonary Assessment Last Done: 09/27/25 12:33
Discharge Date and Time
Discharge Date/Time: 09/27/25 23:07
[2025-09-27] MEDS: NSS 500 IV (12:26)
[2025-09-27 12:43] LABS: Hematocrit 39.0 % (37.0-47.0); Hemoglobin 13.1 g/dL (12.0-16.0); Mean Corp Hgb Conc. 33.6 g/dL (33.0-37.0); Mean Corpuscular Volume 89.7 fL (81.0-99.0); Nucleated Red Blood Cells % 0 %; Platelet Count 270 10^3/uL (130-400); Red Cell Dist. Width 13.2 % (11.5-14.5)
[2025-09-27 12:55] LABS: INR 2.82; PT 29.6 Sec (11.4-14.6)
[2025-09-27 13:11] LABS: Blood Urea Nitrogen 19 mg/dl (7-17); Calcium 9.2 mg/dl (8.4-10.2); Carbon Dioxide 31 mmol/L (22-30); Chloride 103 mmol/L (98-107); Estimated Creatinine Clearance 45 ml/min; Glucose 100 mg/dl (70-99); Potassium 3.6 mmol/L (3.5-5.1); Sodium 138 mmol/L (135-145); eGFR 54.39
[2025-09-27 16:20] LABS: Glucose - Point of Care 114 mg/dl (70-99)
[2025-09-27] MEDS: NSS 1000 IV (16:26)
--- NOTE | 2025-09-27 20:43 | HPS.HSE ---
Family Physician
-
Family Physician: Josep Storey
Chief Complaint
-
accidental overdose
History of Present Illness
Patient is a 70-year-old female with past medical history significant for HFpEF, atrial fibrillation, type 2 diabetes, hypertrophic obstructive cardiomyopathy and depression/anxiety who presented to [facility] ED for evaluation of accidental overdose.
Patient reports that she accidentally took her boyfriends pills (antihypertensive/ metformin, glipizide) this morning instead of her own. She reports feeling fatigued but otherwise no concerns. She reports not taking her medication since she
realized she had ingested her boyfriends medications. Patient states her blood pressure normally runs low and SBP is generally in the 90s.
Medical History
Past Medical History
Past Medical History: Reports Other
Additional Past Medical History:
HFpEF
Type 2 Diabetes
Ventricular Tachycardia
Cardiac arrest
Pacemaker/AICD
Atrial Fibrillation
Hypertrophic obstructive cardiomyopathy
Depression/Anxiety
Nicotine abuse
Methamphetamine use snorts twice weekly
Past Surgical History: Reports Other
Additional Past Surgical History:
Cholecystectomy
Hernia repair
Defibrillator/AICD
Social History
Tobacco: Smoker (20 pack year history, currently smokes approximately 5 cigarettes a day)
Alcohol: Occasional (rare 1-2 a year)
Drug: Marijuana (smokes a few times a week) and Other (methamphetamine last use 08/28/2025)
Personal: Single
Living: With Family
Employment: Disabled
Family History
Family History: Other (Mother: Bile duct ca, A-fib; Father: Blood ca; Brother: Rectal ca; Daughter: rectal ca)
Allergies / Home Medications
Allergies reflects when Allergies were last updated in [facility] [employer].
Home Medications with original date entered in [facility] [employer]
Allergy/Medication List:
Allergies
Allergy/AdvReac Type Severity Reaction Status Date / Time
amiodarone Allergy Shortness Verified 11/23/25 11:49
of Breath
morphine Allergy Vomiting Verified 09/27/25 11:49
Home Medications
citalopram 20 mg tablet 20 mg PO DAILY Mental health 07/13/15
metoprolol tartrate 100 mg tablet 100 mg PO BID Blood pressure 11/25/19
omeprazole 20 mg capsule,delayed release 20 mg PO DAILY Gastrointestinal issue 11/25/19
furosemide 40 mg tablet 80 mg PO DAILY Fluid retention/Swelling 09/06/20
Held on 09/02/25. Instructions: Resume taking Lasix on 09/03/2025
verapamil 180 mg tablet,extended release 360 mg PO DAILY Blood pressure 09/06/20
rosuvastatin 40 mg tablet 40 mg PO QPM High Cholesterol 09/08/23
ranolazine 500 mg tablet,extended release,12 hr 500 mg PO DAILY Heart Disease/Condition 09/04/24
dapagliflozin propanediol 10 mg tablet (Farxiga) 10 mg PO DAILY Diabetes 08/28/25
warfarin 2 mg tablet (Jantoven) 2 mg PO DIRECTED Blood clot prevention/tx 08/28/25
warfarin 4 mg tablet (Jantoven) 4 mg PO MOTU Blood clot prevention/tx 08/28/25
nicotine 14 mg/24 hr daily transdermal patch 14 mg transdermal DAILY #28 ea 09/02/25
Review of Systems
-
History Source: Patient
A 12 point ROS was completed and negative except as noted: Yes
Constitutional: Denies Fever or Chills
EENT: Denies Sore Throat
Respiratory: Denies Cough, Hemoptysis or Trouble Breathing
Cardiac: Denies Chest Pain, Diaphoresis, Palpitations or Syncope
Abdomen/GI: Denies Abdominal Pain, Nausea, Vomiting or Diarrhea
: Denies Dysuria, Frequency or Urgency
Musculoskeletal: Denies Joint Pain
Skin: Denies Rash
Neurological: Reports Dizzy ('off balance'); Denies Headache, Weakness or Numbness
Physical Exam
Vital Signs
Vital Signs
Temp Pulse Resp BP Pulse Ox
98.2 F 60 18 79/50 91
09/27/25 11:49 09/27/25 20:00 09/27/25 20:00 09/27/25 20:00 09/27/25 16:00
Physical Exam
General: Well Developed, Well Nourished, No Apparent Distress, Comfortable and Conversant
HEENT: NormoCephalic, Moist mucous membranes, PERRLA, Nose Appears Normal and Ears Appear Normal
Respiratory: Clear and Non Labored Respirations; No Wheezes, Rales or Rhonchi
Cardiac: Regular Rhythm; No Murmur, Rub or Gallop
GI: Soft, Non Tender, Non Distended and Normal Bowel Sounds
Musculoskeletal: No Clubbing, No Cyanosis and No Edema
Skin: Warm and IV/Catheter Site
Neuro: Awake and AO x 3
Psych: Calm and Intact Judgment/Insight
Laboratory Results
-
09/27/25 12:25
09/27/25 12:25
Laboratory Results
PT 29.6 Sec (11.4-14.6) H 09/27/25 12:25
INR 2.82 09/27/25 12:25
Data Reviewed
-
Medical Tests (Nuc Med, Echo, EKG etc): Report Reviewed by me (EKG: Ventricular-paced rhythm)
Lab Data: Labs Reviewed by me (BUn 19, Creat 1.1, Est CrCl 45, eGFR 54.39)
Impression/Plan
-
IMPRESSION/PLAN:
#accidental overdose
patient reports accidentally ingesting her boyfriends medications (antihypertensive/ metformin, glipizide), she did not take her own scheduled medications when she realized that she had taken his
labs unremarkable
EKG: Ventricular-paced rhythm
- Admit to telemetry
- monitor for adverse reactions
- monitor VS and BG
#HFpEF
- daily weights
- I & Os
- continue dapagliflozin and furosemide
#Hypertrophic obstructive cardiomyopathy
- continue ranolazine
#hypertension
- continue verapamil
#hyperlipidemia
- continue rosuvastatin
#Atrial Fibrillation
INR 2.82
- continue metoprolol and warfarin
- repeat INR in morning
#Depression/Anxiety
- continue citalopram
#Type 2 Diabetes
#Ventricular Tachycardia
#Cardiac arrest
#Pacemaker/AICD
#Nicotine abuse
#Methamphetamine use snorts twice weekly (last use 08/28/2025)
Code status: full code
DVT prophylaxis: warfarin
--- NOTE | 2025-09-27 20:51 | W.PN.UPDATE ---
Update Note
Progress Note Update
Patient seen in conjunction with nurse practitioner. I agree with the findings on history and physical and provide assessment and plan in conjunction with her
Briefly, patient is a 70-year-old female with past medical history significant for diabetes, hypertrophic cardiomyopathy, atrial fibrillation, PVCs, status post pacemaker AICD, on anticoagulation with warfarin, CKD, major depression, history of TIA
who presents to the emergency department after antibiotic ingestion of patient's medications including antihypertensives, and glipizide and metformin. She only took a one-time dose of these medications in the morning. She did not take 1 usual
medications which included a verapamil, metoprolol, Farxiga and ranolazine.
She was hypotensive in the emergency department. She came in feeling off. Her usual blood pressure was in the 90s. She is still slightly somnolent in the ED.
Current blood pressure was 90/50 with a pulse of 60 paced and she was satting 93% on room air. ECG shows AV paced rhythm at a rate of 60. CBC was unremarked. Electrolytes were all within normal limits with a BUN and creatinine of 19 and 1.1 which
is at baseline. Glucose was 100. INR was 2.8.
Assessment and plan
Inadvertent overdose of with antihypertensives and glipizide and metformin. Easily arousable and protecting airways. Most significant effect is hypotension which appears to be resolving. Her blood pressure is now in the 90s systolic with MAP
greater than 65. This appears to be a baseline blood pressure. Sugars have been stable.
- admit to telemetry observation
- hold her metoprolol and verapamil for now
- continue pulse oximetry
- Continue Accu-Checks
- trial of midodrine 2.5 to 5mg if remains with MAP < 65
- hold lasix if SBP < 90
- continue her ranolazine, statin, repeat INR in am, then continue her warfarin if therapeutic
DVT PPX - anticoagulated on warfarin
Code status - Full code
[2025-09-27] MEDS: COUMADIN 2 MG PO (23:55)
[2025-09-28 00:24] LABS: Glucose - Point of Care 94 mg/dl (70-99)
--- NOTE | 2025-09-28 02:24 | PTCARENOTE ---
Pt arrived on the floor on a wheelchair. Pt ambulated to bed safely with one person assist. Pt denies any pain. Pt is Ao*3 and cooperative. VS taken. Pt is on tele monitor. Educated pt on use of call patterson and fall risk. Will continue to monitor pt.
[2025-09-28 03:24] VITALS: BP 95/51
[2025-09-28 06:00] VITALS: BMI 21.9
[2025-09-28 06:06] LABS: Glucose - Point of Care 99 mg/dl (70-99)
[2025-09-28 07:45] VITALS: BP 92/45
--- NOTE | 2025-09-28 08:21 | W.PN.HOSP.TC ---
Today's Communication/Plan
-
cont monitoring BP
antihypertensives updated w/ holding parameters
Assessment / Plan
Assessment / Plan
Physical Exam
General: no acute distress, appears comfortable at thist li
HEENT: NormoCephalic, Moist mucous membranes, PERRLA,
Respiratory: Clear and Non Labored Respirations; No Wheezes, Rales or Rhonchi
Cardiac: Regular Rhythm; No Murmur, Rub or Gallop
GI: Soft, Non Tender, Non Distended and Normal Bowel Sounds
Musculoskeletal: No Clubbing, No Cyanosis and No Edema
Neuro: AOx3 conversant coherent
Psych: Calm and Intact Judgment/Insight
70F with past medical history significant for HFpEF, atrial fibrillation, type 2 diabetes, hypertrophic obstructive cardiomyopathy and depression/anxiety who presented to [facility] ED for evaluation of accidental overdose. Patient reports that she
accidentally took her boyfriends pills (antihypertensive/ metformin, glipizide) instead of her own.
#accidental overdose
patient reports accidentally ingesting her boyfriends medications (antihypertensive/ metformin, glipizide), she did not take her own scheduled medications when she realized that she had taken his
labs unremarkable
EKG: Ventricular-paced rhythm
- Admit to telemetry
- monitor for adverse reactions
- monitor VS and BG
#HFpEF
- daily weights
- I & Os
- continue dapagliflozin and furosemide w/ holding parameters
#Hypertrophic obstructive cardiomyopathy
- continue ranolazine
#hypertension
- continue verapamil with holding parameters
#hyperlipidemia
- continue rosuvastatin
#Atrial Fibrillation
INR goal 2-3
- continue metoprolol with holding parameters and warfarin
- monitor INR
#Depression/Anxiety
- continue citalopram
#Type 2 Diabetes
#Ventricular Tachycardia
#Cardiac arrest
#Pacemaker/AICD
#Nicotine abuse
#Methamphetamine use snorts twice weekly (last use 08/28/2025)
Code status: full code
DVT prophylaxis: warfarin
I spent a total of 40 minutes with the patient or on the floor. More than 50% of this time involved counseling and coordination of care.
Anticipated Discharge: Within 24 hours
Subjective/Interval History
-
Date of Service: September 28, 2025
Seen and examined at bedside in no acute distress. Overall reports feeling well. Ambulating without need for assist device. Denies SOB or lightheadedness
Objective Data
-
Labs:
Laboratory Results
09/28/25
07:45
PT Pending
INR Pending
Vital Signs:
Vital Signs
Temp Pulse Resp BP Pulse Ox
98.6 F 60 15 95/51 96
09/28/25 03:24 09/28/25 03:24 09/28/25 03:24 09/28/25 03:24 09/28/25 03:24
I&O
09/27/25 09/28/25 09/29/25
06:59 06:59 06:59
Intake Total 1500 / 1500
Balance 1500 / 1500
[2025-09-28 08:22] LABS: INR 1.89; PT 21.9 Sec (11.4-14.6)
[2025-09-28] MEDS: FARXIGA 10 MG PO (09:44)
[2025-09-28] MEDS: PROTONIX 40 MG PO (09:44)
[2025-09-28] MEDS: CELEXA 20 MG PO (09:44)
[2025-09-28] MEDS: RANEXA EXTENDED RELEASE 500 MG PO (09:44)
[2025-09-28] MEDS: CALAN EXTENDED RELEASE PO (10:02)
[2025-09-28] MEDS: LASIX PO (10:02)
[2025-09-28] MEDS: LOPRESSOR PO (10:02)
--- NOTE | 2025-09-28 10:26 | CM ---
Patient seen bedside, initial assessment completed. Patient is a 70-year-old female with past medical history significant for HFpEF, atrial fibrillation, type 2 diabetes, hypertrophic obstructive cardiomyopathy and depression/anxiety who presented
to [facility] ED for evaluation of accidental overdose.
Patient resides w/ daughter in a single story home. Patient is independent w/ ambulation, patient has a RW but has only used once. Independent w/ ADLs and personal care. Patient drives. Denies SNF hx, [facility] hx. CM consulted for advanced directive,
patient agreeable to and was provided a copy of packet.
Address, point of contact and insurance verified
PCP: Josep Storey
Pharmacy: [facility]
Patient admitted under obs services. FERGUSON form verbally reviewed, copy provided, copy on chart
Plan: Home, no needs likely
[2025-09-28 11:30] VITALS: BP 95/58
[2025-09-28 11:53] LABS: Glucose - Point of Care 146 mg/dl (70-99)
[2025-09-28 15:40] VITALS: BP 101/64
[2025-09-28] MEDS: CRESTOR 40 MG PO (17:35)
[2025-09-28] MEDS: COUMADIN 4 MG PO (17:35)
[2025-09-28 18:42] VITALS: BMI 21.9
[2025-09-28 19:45] LABS: Glucose - Point of Care 147 mg/dl (70-99)
[2025-09-28 19:46] VITALS: BP 109/60
[2025-09-28] MEDS: LOPRESSOR 100 MG PO (19:51)
[2025-09-28 23:49] VITALS: BP 96/62
[2025-09-28 23:49] LABS: Glucose - Point of Care 120 mg/dl (70-99)
[2025-09-29 03:49] VITALS: BP 98/65
[2025-09-29 06:00] VITALS: BMI 21.7
[2025-09-29 06:01] LABS: Glucose - Point of Care 102 mg/dl (70-99)
--- NOTE | 2025-09-29 07:43 | W.PN.HOSP.TC ---
Today's Communication/Plan
-
discharge
Assessment / Plan
Assessment / Plan
Physical Exam
General: no acute distress, appears comfortable at thist li
HEENT: NormoCephalic, Moist mucous membranes, PERRLA,
Respiratory: Clear and Non Labored Respirations; No Wheezes, Rales or Rhonchi
Cardiac: Regular Rhythm; No Murmur, Rub or Gallop
GI: Soft, Non Tender, Non Distended and Normal Bowel Sounds
Musculoskeletal: No Clubbing, No Cyanosis and No Edema
Neuro: AOx3 conversant coherent
Psych: Calm and Intact Judgment/Insight
70F with past medical history significant for HFpEF, atrial fibrillation, type 2 diabetes, hypertrophic obstructive cardiomyopathy and depression/anxiety who presented to [facility] ED for evaluation of accidental overdose. Patient reports that she
accidentally took her boyfriends pills (antihypertensive/ metformin, glipizide) instead of her own.
#accidental overdose
Tele admit
Hypotension from overdose as above since resolved, home antihypertensives resumed, tolerating
labs unremarkable
EKG: Ventricular-paced rhythm
#HFpEF
- daily weights
- I & Os
- continue dapagliflozin and furosemide w/ holding parameters
#Hypertrophic obstructive cardiomyopathy
- continue ranolazine
#hypertension
- continue verapamil with holding parameters
#hyperlipidemia
- continue rosuvastatin
#Atrial Fibrillation
INR goal 2-3
- continue metoprolol with holding parameters and warfarin
- INR 1.75, subtherapeutic, discussed w/ patient who reports having an INR monitoring device at home, recommend continuing with 4 mg warfarin QPM until INR therapeutic 2-3 then reduce back to home dosing.
#Depression/Anxiety
- continue citalopram
#Type 2 Diabetes
#Ventricular Tachycardia
#Cardiac arrest
#Pacemaker/AICD
#Nicotine abuse
#Hx Methamphetamine use- patient currently denies, reports abstinence, importance of abstinence from further illicit drug use counseled/reinforced
Code status: full code
DVT prophylaxis: warfarin
Medically stable for discharge home with outpatient follow up recommendations.
Total Time Preparing Discharge __40 minutes including examination of the patient, summary of the hospital stay, instructions for continuing care to all relevant caregivers; and preparation of discharge records, prescriptions, and referral
forms if necessary.
Anticipated Discharge: Today
Subjective/Interval History
-
Date of Service: September 29, 2025
No acute distress, appears comfortable at this time. Denies new acute issues. Overall reports feeling well. Eager to go home.
Objective Data
-
Labs:
Laboratory Results
09/29/25
07:27
WBC Pending
Hgb Pending
Hct Pending
Plt Count Pending
PT Pending
INR Pending
Sodium Pending
Potassium Pending
Chloride Pending
Carbon Dioxide Pending
BUN Pending
Creatinine Pending
Glucose Pending
Calcium Pending
Vital Signs:
Vital Signs
Temp Pulse Resp BP Pulse Ox
98.5 F 63 16 98/65 94
09/29/25 03:49 09/29/25 03:49 09/29/25 03:49 09/29/25 03:49 09/29/25 03:49
I&O
09/28/25 09/29/25 09/30/25
06:59 06:59 06:59
Intake Total 1500 / 1500 660 / 660
Balance 1500 / 1500 660 / 660
[2025-09-29 07:50] VITALS: BP 107/64
[2025-09-29 07:56] LABS: Hematocrit 38.9 % (37.0-47.0); Hemoglobin 13.0 g/dL (12.0-16.0); Mean Corp Hgb Conc. 33.4 g/dL (33.0-37.0); Mean Corpuscular Volume 88.6 fL (81.0-99.0); Platelet Count 257 10^3/uL (130-400); Red Cell Dist. Width 13.2 % (11.5-14.5)
[2025-09-29 08:05] LABS: INR 1.75; PT 20.6 Sec (11.4-14.6)
[2025-09-29 08:55] LABS: Blood Urea Nitrogen 14 mg/dl (7-17); Calcium 9.6 mg/dl (8.4-10.2); Carbon Dioxide 25 mmol/L (22-30); Chloride 108 mmol/L (98-107); Estimated Creatinine Clearance 43 ml/min; Glucose 103 mg/dl (70-99); Magnesium 1.9 mg/dl (1.6-2.3); Potassium 4.8 mmol/L (3.5-5.1); Sodium 135 mmol/L (135-145); eGFR 54.39
[2025-09-29] MEDS: CELEXA 20 MG PO (09:11)
[2025-09-29] MEDS: RANEXA EXTENDED RELEASE 500 MG PO (09:11)
[2025-09-29] MEDS: LASIX 80 MG PO (09:11)
[2025-09-29] MEDS: CALAN EXTENDED RELEASE 360 MG PO (09:11)
[2025-09-29] MEDS: FARXIGA 10 MG PO (09:11)
[2025-09-29] MEDS: LOPRESSOR 100 MG PO (09:12)
[2025-09-29] MEDS: PROTONIX 40 MG PO (09:12)
[2025-09-29 11:50] VITALS: BP 99/54
[2025-09-29 13:01] LABS: Glucose - Point of Care 149 mg/dl (70-99)
--- NOTE | 2025-09-29 14:12 | W.DCSUMMARY ---
Discharge Summary
Discharge Data
Date of Admission: 09/27/25
Date of Discharge: 09/29/25
-
Pending Results: No
Discharge Plan
-
Patient Disposition: Home (Routine Discharge)
Discharge Diagnosis/Procedures: Accidental overdose
Hypotension
Subtherapeutic INR, Atrial Fibrillation
Condition: Fair
Diet: Low Cholesterol and 2 Gram Sodium
Activity: As tolerated
Driving Restrictions: As prior to admission
Bathing Restrictions: None
Activity Restrictions/Additional Instructions:
Follow up with primary care provider in 1 week of discharge.
Continue with 4mg warfarin every evening until INR therapeutic 2-3 (use your home INR machine to check daily before each dose). When INR therapeutic, resume prior home Warfarin regimen (4 mg Mon Tu and 2 mg all other days). If INR becomes
therapeutic on Sun or , then reduce to 2 mg until the next Sun (then resume home regimen 4 mg Mon Tu and 2 mg all other days).
Keep a daily log of your blood pressure at home- to review with your primary care provider in follow up.
Please take medications as prescribed/recommended and follow up with primary care provider and/or other healthcare provider involved in your care for refills and/or further adjustment to your medication regimen as necessary.
Referrals:
Josep Storey MD [Family Provider, [facility]] - in one week
Prescriptions:
New
warfarin 4 mg tablet
4 mg PO QPM Qty: 7 0RF
Continued
citalopram 20 MG tablet
20 mg PO DAILY
metoprolol tartrate 100 MG tablet
100 mg PO BID
omeprazole 20 MG capsule,delayed release(DR/EC)
20 mg PO DAILY
furosemide 40 MG tablet
80 mg PO DAILY
verapamil 180 MG tablet extended release
360 mg PO DAILY
rosuvastatin 40 mg tablet
40 mg PO QPM
ranolazine 500 mg Tablet Extended Release 12 Hr
500 mg PO DAILY
Patient Comments:
09/04/24-patient stated she only takes one cause she cant pee on it
dapagliflozin propanediol [Farxiga] 10 mg tablet
10 mg PO DAILY
nicotine 14 mg/24 hr Patch 24 Hour
14 mg transdermal DAILY Qty: 28 0RF
Held
warfarin [Jantoven] 4 mg tablet
4 mg PO MOTU
Hold Instructions: continue with 4mg warfarin every evening until INR therapeutic 2-3, then resume prior home Warfarin regimen (4 mg Mon and 2 mg all other days). If INR becomes therapeutic on Sun or , then reduce to 2 mg until the next
Sun.
warfarin [Jantoven] 2 mg tablet
2 mg PO DIRECTED
Hold Instructions: continue with 4mg warfarin every evening until INR therapeutic 2-3, then resume prior home Warfarin regimen (4 mg Sun and 2 mg all other days). If INR becomes therapeutic on Sun or Tu, then reduce to 2 mg until the next
Mon.
Rx Instructions:
takes 2 mg [id number]
Discharge Orders:
Discharge Patient (As Directed); Ordered 09/29/25
Ordered By: Nestor Egan
Discharge Date and Time
Print Language: BURKINAN
--- NOTE | 2025-09-29 14:35 | CM ---
Patient will d/c home today
No CM needs at this time
[2025-09-29 15:35] VITALS: BP 87/58; BP 90/56
== END 2025-09-29 17:02 | disposition home or self-care (01) ==
LOC: 4 EAST ACU 21:28
PROVIDERS: Emergency Medicine; Nurse Practitioner Family; ADMITTING PHYSICIAN Internal Medicine; ATTENDING PHYSICIAN Internal Medicine; EMERGENCY PHYSICIAN Student in an Organized Health Care Education/Training Program; FAMILY PHYSICIAN Family Medicine
DX: T50.991A Poisoning by other drugs, medicaments and biological substances, accidental (unintentional), initial encounter (principal); I95.9 Hypotension, unspecified; Y92.009 Unspecified place in unspecified non-institutional (private) residence as the place of occurrence of the external cause; E78.00 Pure hypercholesterolemia, unspecified; I11.0 Hypertensive heart disease with heart failure; I25.10 Atherosclerotic heart disease of native coronary artery without angina pectoris; I42.1 Obstructive hypertrophic cardiomyopathy; F32.9 Major depressive disorder, single episode, unspecified; I48.91 Unspecified atrial fibrillation; E11.9 Type 2 diabetes mellitus without complications; I47.20 Ventricular tachycardia, unspecified; F41.9 Anxiety disorder, unspecified; F15.90 Other stimulant use, unspecified, uncomplicated; I50.32 Chronic diastolic (congestive) heart failure; F17.210 Nicotine dependence, cigarettes, uncomplicated; F12.90 Cannabis use, unspecified, uncomplicated; I25.2 Old myocardial infarction; Z86.79 Personal history of other diseases of the circulatory system; Z80.0 Family history of malignant neoplasm of digestive organs; Z98.51 Tubal ligation status; Z98.890 Other specified postprocedural states; Z90.49 Acquired absence of other specified parts of digestive tract; Z95.810 Presence of automatic (implantable) cardiac defibrillator; Z96.641 Presence of right artificial hip joint; Z79.01 Long term (current) use of anticoagulants; Z88.5 Allergy status to narcotic agent; Z88.8 Allergy status to other drugs, medicaments and biological substances; Z79.84 Long term (current) use of oral hypoglycemic drugs; Z86.74 Personal history of sudden cardiac arrest
CPT/HCPCS: 80048; 82962; 83735; 84100; 85025; 85027; 85610; 93005; 96360; 96361; 99285; 99406; G0378

== ENCOUNTER → 2025-10-16 13:58 | Outpatient (REF) | payer MEDICARE, SELFPAY | LOC: RCS 13:58 | PROVIDERS: ATTENDING PHYSICIAN Internal Medicine; FAMILY PHYSICIAN Physician Assistant | DX: I48.21 Permanent atrial fibrillation (principal); I42.1 Obstructive hypertrophic cardiomyopathy; I10 Essential (primary) hypertension; I34.0 Nonrheumatic mitral (valve) insufficiency | CPT/HCPCS: 93306 ==